=== PATIENT | female | born 1990 | race Caucasian/White ===

== ENCOUNTER 2022-08-31 00:09 | Inpatient (IN) ==
[2022-08-31] MEDS ORDERED: LIDOCAINE 1% LOCAL 20 ML VIAL INFIL PRN (00:57)
[2022-08-31] MEDS ORDERED: OXYTOCIN 30 UNITS/500 ML BAG IV PRN ×3 (00:57→12:55)
--- NOTE | 2022-08-31 01:05 | History & Physical Report ---
Date of Service August 31, 2022 Assessment & Plan (1) Supervision of normal first : Plan: primip at 39 6/7 weeks with regular contractions GBS(+)- start PCN prophylaxis epidural analgesia when requested anticipate vaginal History of Present Illness Primary Care Provider: Lien Crawford DO patient is a 31 yo female EDC 09/01/22 who presents at 39 + weeks with regular contractions that are now at least every 5 minutes and getting more painful. (-)SPROM. complicated by GDM- diet controlled. GBS (+) Allergies Allergy/AdvReac Type Severity Reaction Status Date / Time No Known Allergies Allergy Verified 08/30/22 15:36 Home Medications Medication Instructions Recorded Confirmed Type prenat.vits,jarred,mij-hwyi-yhsah 1 tab PO DAILY 01/23/22 08/31/22 History acetone (urine) test (Ketone Urine #50 ea 04/04/22 08/24/22 Rx Test strips) blood sugar diagnostic (OneTouch #150 ea 04/04/22 08/24/22 Rx Verio test strips) blood-glucose meter (OneTouch #1 ea 04/04/22 08/24/22 Rx Verio Meter) lancets 33 gauge (OneTouch Delica #150 ea 04/04/22 08/24/22 Rx Plus Lancet) Patient History Medical History BRCA negative LGSIL on Pap smear of cervix 10/23/2018 Varicella vaccination Surgical History H/O colposcopy with cervical biopsy H/O wisdom tooth extraction Family History Father BRCA gene mutation positive Prostate cancer Aunt Breast cancer Ovarian cancer Denies family history of Colorectal cancer Uterine cancer Social History Smoking Status: Never smoker Hx Alcohol Use: Yes Hx Substance Use: No Preferred Language: Wolof Communication Ability: Effective Drafter Civil (Cad) Required: No Beliefs That Will Affect Care: None marital status: marital status details: Ge Saunders (27) [phone] Current Living Situation: Spouse Current Living Situation Comment: lives with spouse, dog, cat-spouse changing litter current occupational status: employed current occupation: [employer] Home [facility] Care-[facility] Feels Safe at Home: Yes Safety Concerns: Feels Safe At This Time Assistive Devices: Glasses Review of Systems All systems reviewed & are unremarkable except as noted in HPI & below Physical Exam Constitutional: WD/WN, vitals as above Psychiatric: A+Ox3, euthymic affect Genitourinary: OB Exam Abdomen: + vertex, + estimated weight (7-8 pounds) and + regular contractions (Q3-5 minutes) Manual OB Exam: + cervical dilation 2 cm, + cervical effacement 100% and + station -2 OB Exam Monitor Tracing: + external FHT monitor used, + external uterine monitor used, + category I and + normal FHT variability Results & Data ([facility]) Vital Signs (Past 12 Hours) Vital Signs Temp Pulse BP 08/31/22 00:27 97.9 F 77 125/75 08/31/22 00:23 77 125/75 Code Status & VTE Plan VTE Prophylaxis Plan VTE Prophylaxis will be ordered: No Coding Level of Care Code None Diagnoses Supervision of normal first Z34.00
[2022-08-31] MEDS ORDERED: PENICILLIN G POTASSIUM 6 MU in DEXTROSE 5% 250 ML IV STA (01:11)
[2022-08-31] MEDS: LACTATED RINGER'S 1,000 ML IV PRN ×3 (01:15→05:34)
[2022-08-31] MEDS ORDERED: CALCIUM CARBONATE 500 MG CHEWABLE TAB PO STA (01:16)
[2022-08-31] MEDS ORDERED: ePHEDrine sulfate 50 MG/ML AMP ONE (01:30)
[2022-08-31] MEDS ORDERED: SODIUM CHLORIDE 0.9% INJ 10 ML VIAL ONE (01:31)
[2022-08-31] MEDS ORDERED: fentaNYL citrate 100 MCG/2 ML VIAL ONE (01:31)
[2022-08-31] MEDS ORDERED: BUPIVACAINE 0.25% 30 ML VIAL ONE (01:31)
[2022-08-31] MEDS ORDERED: LIDOCAINE 2%/EPINEPHRINE 1:200,000 20 ML SDV ONE (01:31)
[2022-08-31] MEDS ORDERED: fentaNYL 2MCG/ML ROPIVACAINE 1.25MG/ML 100 ML BAG EPI ONE (01:31)
[2022-08-31 01:43] LABS: Hemoglobin 13.1 g/dl (12.0-16.0); Mean Corpuscular Hemoglobin 26.5 pg (25.0-34.0); Mean Corpuscular Hgb Conc 32.8 g/dL (32.0-36.0); Mean Corpuscular Volume 80.8 fL (80.0-100.0); Mean Platelet Volume 11.2 fL (9.4-12.3); Platelet Count 153 K/uL (130-400); RDW Coefficient of Variation 14.3 % (11.5-14.5); RDW Standard Deviation 41.4 fL (36.4-46.3); Red Blood Count 4.95 M/uL (3.93-5.22); White Blood Count 11.36 K/ul (4.8-10.8)
[2022-08-31] MEDS ORDERED: NALBUPHINE HCL INJ 10 MG/ML AMP IV PRN (02:16)
[2022-08-31] MEDS ORDERED: NALOXONE HCL 0.4 MG/1 ML VIAL/CARP IV PRN (02:16)
[2022-08-31] MEDS ORDERED: fentaNYL 2MCG/ML ROPIVACAINE 1.25MG/ML 100 ML BAG EPI PRN (02:16)
[2022-08-31] MEDS ORDERED: ONDANSETRON INJ 2 MG/ML 2 ML VIAL IV PRN (02:16)
[2022-08-31] MEDS ORDERED: NALOXONE HCL 1 MG in SODIUM CHLORIDE 0.9% 1000ML 1,000 ML IV PRN (02:16)
[2022-08-31] MEDS ORDERED: diphenhydrAMINE 50 MG/ML VIAL IV PRN (02:16)
[2022-08-31] MEDS ORDERED: ePHEDrine sulfate 50 MG/ML AMP IV PRN (02:16)
--- NOTE | 2022-08-31 02:16 | Anesthesiology Consultation ---
Date of Service August 31, 2022 Assessment & Plan ASA ASA2 Proposed Anesthesia Anesthesia Type: Labor Epidural Risk / Benefits Reviewed With: PT / POA / Parent / Guardian, Accepts Plan and Informed Consent Obtained History Height/Weight Height: 5 ft 2 in Weight: 77.836 kg Allergies Allergy/AdvReac Type Severity Reaction Status Date / Time No Known Allergies Allergy Verified 08/30/22 15:36 Medications Home Medications Medication Instructions Recorded Confirmed Last Taken prenat.vits,jarred,sor-yqjp-eqhsu 1 tab PO DAILY 01/23/22 08/31/22 08/30/22 08:00 acetone (urine) test (Ketone Urine #50 ea 04/04/22 08/24/22 Unknown Test strips) blood sugar diagnostic (OneTouch #150 ea 04/04/22 08/24/22 Unknown Verio test strips) blood-glucose meter (OneTouch #1 ea 04/04/22 08/24/22 Unknown Verio Meter) lancets 33 gauge (OneTouch Delica #150 ea 04/04/22 08/24/22 Unknown Plus Lancet) Active Medications Generic Name Dose Route Start Last Admin Trade Name Freq PRN Reason Stop Dose Admin Lactated Ringer's 1,000 mls @ 125 mls/hr 08/31/22 00:57 08/31/22 02:40 Lr IV 09/02/22 00:56 125 mls/hr .Q8H PRN Administration L&D Protocol Protocol Past Medical History Medical History BRCA negative LGSIL on Pap smear of cervix 10/23/2018 Varicella vaccination Exercise / Class Metabolic Activity II 4-5 Yardwork/Stairs/Walk up hill Past Family History Family History Father BRCA gene mutation positive Prostate cancer Aunt Breast cancer Paternal Ovarian cancer Paternal Denies family history of Colorectal cancer Uterine cancer Past Surgical History Surgical History H/O colposcopy with cervical biopsy 11/2018-LGSIL H/O wisdom tooth extraction Past Anesthesia History No Hx of Anesthesia Complications and No Family Hx of Anesthesia Complications History of PONV No Hx of PONV and No Hx of Motion Sickness Social History Smoking Status: Never smoker Hx Alcohol Use: Yes Hx Substance Use: No Review of Systems denies fever/cough/ colds/ chest pain/ SOB/ NAMRATA denies NAMRATA Physical Exam Vital Signs Last Vital Signs Temp 36.6 C 08/31/22 00:27 Pulse 93 H 08/31/22 02:42 BP 109/62 08/31/22 02:42 Pulse Ox 100 08/31/22 02:42 ENMT Mouth: no TMJ abnormality and no dentition abnormality Thyromental Distance: > or= 3.5 Finger Breadths Mallampati Class: II Neck neck extension not limited Respiratory normal respiratory effort; no respiratory distress Auscultation: lungs clear to auscultation bilaterally Cardiovascular Rate/Rhythm: regular rate and regular rhythm Neurologic moves all extremities Psychiatric Orientation: alert and oriented x 3 Testing Laboratory Results 08/31/22 01:12 08/31/22 01:58 POC Glucose 119 H
[2022-08-31] MEDS: PENICILLIN G POTASSIUM 3 MU in DEXTROSE 5% 100 ML IV PRN ×2 (05:33→09:56)
--- NOTE | 2022-08-31 08:44 | Labor Progress Brief Note ---
Date of Service August 31, 2022 Subjective AROM for clear fluid at 0800 - patient comfortable with epidural analgesia now. cervix still 6-7 cm same as exam at 0700 FHT's reactive with ctns every 5 minutes Review of Systems All systems reviewed & are unremarkable except as noted in HPI & below Assessment & Plan (1) Normal labor: Admission and Anticipated Discharge Date Admission Date: August 31, 2022 Physical Exam Constitutional: WD/WN, vitals as above Psychiatric: A+Ox3, euthymic affect Results & Data ([facility]) Vital Signs (Past 12 Hours) Vital Signs Temp Pulse Resp BP Pulse Ox 08/31/22 07:08 97.9 F 16 08/31/22 00:27 97.9 F 77 125/75 08/31/22 08:40 80 92 08/31/22 08:37 81 100 08/31/22 08:32 102 H 100 08/31/22 08:31 88 103/66 08/31/22 08:28 79 106/69 08/31/22 08:27 112 H 100 08/31/22 08:22 100 H 100 08/31/22 08:21 89 101/65 08/31/22 08:18 66 108/59 L 08/31/22 08:17 71 99/70 L 100 08/31/22 08:16 113 H 93/57 L 08/31/22 08:12 73 100 08/31/22 08:10 89 91 08/31/22 08:07 120 H 100 08/31/22 08:02 101 H 100 08/31/22 08:01 112 H 99/60 L 08/31/22 08:00 107 H 93 08/31/22 07:57 78 100 08/31/22 07:52 90 100 08/31/22 07:47 108 H 110/73 100 08/31/22 07:42 83 100 08/31/22 07:37 80 100 08/31/22 07:32 81 81 L 08/31/22 07:31 80 123/73 90 08/31/22 07:27 95 H 95 08/31/22 07:22 84 100 08/31/22 07:17 88 100 08/31/22 07:16 112 H 115/74 08/31/22 07:12 71 100 08/31/22 07:07 78 100 08/31/22 07:02 90 08/31/22 07:02 99 H 08/31/22 07:02 94 H 100 08/31/22 07:01 77 121/69 08/31/22 06:57 96 H 100 08/31/22 06:53 88 94 08/31/22 06:52 76 96 08/31/22 06:47 99 H 100 08/31/22 06:46 87 132/68 08/31/22 06:42 91 H 100 08/31/22 06:41 85 90 08/31/22 06:37 76 100 08/31/22 06:30 18 08/31/22 06:30 18 08/31/22 06:32 92 H 117/71 100 08/31/22 06:27 98 H 100 08/31/22 06:22 112 H 100 08/31/22 06:17 87 100 08/31/22 06:16 87 114/67 08/31/22 06:12 105 H 100 08/31/22 06:07 99 H 100 08/31/22 06:02 101 H 100 08/31/22 06:01 91 H 118/68 08/31/22 05:57 96 H 100 08/31/22 05:53 88 91 08/31/22 05:52 95 H 100 08/31/22 05:47 81 114/67 100 08/31/22 05:43 100 H 87 L 08/31/22 05:42 96 H 100 08/31/22 05:37 88 100 08/31/22 05:32 81 100 08/31/22 05:31 81 125/67 08/31/22 05:27 96 H 100 08/31/22 05:22 82 100 08/31/22 05:20 84 92 08/31/22 05:17 77 122/69 100 08/31/22 05:14 90 92 08/31/22 05:12 90 96 08/31/22 05:07 83 100 08/31/22 05:05 81 91 08/31/22 05:02 85 100 08/31/22 05:01 82 113/66 08/31/22 04:57 79 97 08/31/22 04:54 74 121/65 08/31/22 04:52 67 100 08/31/22 04:50 66 121/81 08/31/22 04:48 58 L 114/71 08/31/22 04:47 69 97/53 L 100 08/31/22 04:42 64 100 08/31/22 04:37 91 H 96 08/31/22 04:32 74 105/59 L 100 08/31/22 04:30 18 08/31/22 04:30 18 08/31/22 04:27 66 100 08/31/22 04:22 64 98 08/31/22 04:17 62 99 08/31/22 04:16 57 L 100/58 L 08/31/22 04:12 66 99 08/31/22 04:07 76 100 08/31/22 04:03 61 106/60 08/31/22 04:02 64 100 08/31/22 04:00 18 08/31/22 04:00 18 08/31/22 03:57 63 100 08/31/22 03:54 86 89 L 08/31/22 03:52 66 100 08/31/22 03:47 62 100 08/31/22 03:46 64 104/60 08/31/22 03:42 64 100 08/31/22 03:37 82 100 08/31/22 03:30 18 08/31/22 03:30 18 08/31/22 03:32 69 98/56 L 99 08/31/22 03:31 64 100/56 L 08/31/22 03:27 69 99 08/31/22 03:22 77 100 08/31/22 03:17 67 105/56 L 99 08/31/22 03:15 18 08/31/22 03:15 18 08/31/22 03:00 18 08/31/22 03:00 18 08/31/22 03:12 69 100 08/31/22 00:30 97.9 F 08/31/22 03:05 97.7 F 08/31/22 03:00 20 08/31/22 03:00 20 08/31/22 03:07 73 100 08/31/22 02:35 18 08/31/22 02:35 18 08/31/22 03:02 80 99 08/31/22 03:01 94 H 115/55 L 08/31/22 02:57 107 H 100 08/31/22 02:55 80 111/58 L 08/31/22 02:52 94 H 100 08/31/22 02:50 93 H 20 107/59 L 08/31/22 02:47 102 H 100 08/31/22 02:45 97 H 20 115/66 08/31/22 02:44 68 108/55 L 08/31/22 02:42 93 H 109/62 100 08/31/22 02:40 106 H 20 116/72 08/31/22 02:37 74 100 08/31/22 02:38 81 109/65 08/31/22 02:36 90 113/71 08/31/22 02:33 99 H 89 L 08/31/22 02:32 66 100 08/31/22 02:27 102 H 100 08/31/22 02:22 98 H 100 08/31/22 00:23 77 125/75 Coding Level of Care Code None Diagnoses Normal labor O80; Z37.9
--- NOTE | 2022-08-31 09:14 | Communication Note ---
Date of Service: August 31, 2022 Patient aware i am taking over care. Ts categ 1. Recent arom by Dr. Feldman. Ctx pattern irregular. Will add pit may. efw 7-#. examined pt yesterday in office.
--- NOTE | 2022-08-31 11:53 | Labor Progress Brief Note ---
Date of Service August 31, 2022 Subjective comfortable but feels pressure Assessment & Plan (1) Supervision of normal first : (2) Group beta Strep positive: (3) Gestational diabetes: (4) Normal labor: Plan good cx change. begin 2nd stage. fhts categ 2. Admission and Anticipated Discharge Date Admission Date: August 31, 2022 Physical Exam Constitutional: WD/WN, vitals as above Genitourinary: Manual OB Exam: + cervical dilation 10 cm, + cervical effacement 100% and + station + 2 OB Exam Monitor Tracing: + external FHT monitor used, + external uterine monitor used (q2-3), + category II, + normal FHT variability and + variable decelerations Results & Data ([facility]) Vital Signs (Past 12 Hours) Vital Signs Temp Pulse Resp BP Pulse Ox 08/31/22 11:00 98.1 F 16 08/31/22 07:08 97.9 F 16 08/31/22 00:27 97.9 F 77 125/75 08/31/22 11:47 103 H 08/31/22 11:47 111 H 141/61 H 81 L 08/31/22 11:42 99 H 100 08/31/22 11:40 104 H 91 08/31/22 11:37 114 H 100 08/31/22 11:33 86 88 L 08/31/22 11:32 96 H 114/70 100 08/31/22 11:27 83 100 08/31/22 11:24 105 H 114/80 08/31/22 11:23 118 H 122/81 08/31/22 11:22 90 96 08/31/22 11:20 84 100/61 08/31/22 11:17 96 H 102/65 100 08/31/22 11:12 77 96 08/31/22 11:07 83 100 08/31/22 11:04 88 90 08/31/22 11:02 78 100 08/31/22 11:03 77 116/75 08/31/22 10:57 86 100 08/31/22 10:52 90 99 08/31/22 10:47 89 128/78 91 08/31/22 10:42 87 100 08/31/22 10:37 82 100 08/31/22 10:32 75 100 08/31/22 10:31 81 120/72 08/31/22 10:27 80 100 11/10/22 10:22 79 100 08/31/22 10:17 82 100 08/31/22 10:16 81 114/72 08/31/22 10:00 18 08/31/22 10:00 18 08/31/22 10:12 77 100 08/31/22 10:08 86 92 08/31/22 10:07 75 100 08/31/22 10:02 79 100 08/31/22 10:01 85 112/72 08/31/22 09:57 97 H 100 08/31/22 09:52 83 100 08/31/22 09:47 81 08/31/22 09:47 93 H 114/75 100 08/31/22 09:42 87 100 08/31/22 09:37 77 100 08/31/22 09:33 74 117/70 08/31/22 09:32 73 100 08/31/22 09:27 74 100 08/31/22 09:22 82 100 08/31/22 09:17 73 119/69 100 08/31/22 09:12 73 100 08/31/22 09:07 109 H 100 08/31/22 09:02 91 H 100 08/31/22 09:01 97.7 F 70 18 113/70 08/31/22 08:57 75 100 08/31/22 08:56 82 92 08/31/22 08:52 76 100 08/31/22 08:47 93 08/31/22 08:47 80 08/31/22 08:47 74 100 08/31/22 08:46 73 111/68 08/31/22 08:42 76 100 08/31/22 08:40 80 92 08/31/22 08:37 81 100 08/31/22 08:32 102 H 100 08/31/22 08:31 88 103/66 08/31/22 08:28 79 106/69 08/31/22 08:27 112 H 100 08/31/22 08:22 100 H 100 08/31/22 08:21 89 101/65 08/31/22 08:18 66 108/59 L 08/31/22 08:17 71 99/70 L 100 08/31/22 08:16 113 H 93/57 L 08/31/22 08:12 73 100 08/31/22 08:10 89 91 11/10/22 08:07 120 H 100 08/31/22 08:02 101 H 100 08/31/22 08:01 112 H 18 99/60 L 08/31/22 08:00 107 H 93 08/31/22 07:57 78 100 08/31/22 07:52 90 100 08/31/22 07:47 108 H 110/73 100 08/31/22 07:42 83 100 08/31/22 07:37 80 100 08/31/22 07:32 81 81 L 08/31/22 07:31 80 123/73 90 08/31/22 07:27 95 H 95 08/31/22 07:22 84 100 08/31/22 07:17 88 100 08/31/22 07:16 112 H 115/74 08/31/22 07:12 71 100 08/31/22 07:07 78 100 08/31/22 07:02 90 08/31/22 07:02 99 H 08/31/22 07:02 94 H 100 08/31/22 07:01 77 121/69 08/31/22 06:57 96 H 100 08/31/22 06:53 88 94 08/31/22 06:52 76 96 08/31/22 06:47 99 H 100 08/31/22 06:46 87 132/68 08/31/22 06:42 91 H 100 08/31/22 06:41 85 90 08/31/22 06:37 76 100 08/31/22 06:30 18 08/31/22 06:30 18 08/31/22 06:32 92 H 117/71 100 08/31/22 06:27 98 H 100 08/31/22 06:22 112 H 100 08/31/22 06:17 87 100 08/31/22 06:16 87 114/67 08/31/22 06:12 105 H 100 08/31/22 06:07 99 H 100 08/31/22 06:02 101 H 100 08/31/22 06:01 91 H 118/68 08/31/22 05:57 96 H 100 08/31/22 05:53 88 91 08/31/22 05:52 95 H 100 08/31/22 05:47 81 114/67 100 08/31/22 05:43 100 H 87 L 08/31/22 05:42 96 H 100 08/31/22 05:37 88 100 08/31/22 05:32 81 100 08/31/22 05:31 81 125/67 08/31/22 05:27 96 H 100 08/31/22 05:22 82 100 08/31/22 05:20 84 92 08/31/22 05:17 77 122/69 100 08/31/22 05:14 90 92 08/31/22 05:12 90 96 08/31/22 05:07 83 100 08/31/22 05:05 81 91 08/31/22 05:02 85 100 08/31/22 05:01 82 113/66 08/31/22 04:57 79 97 08/31/22 04:54 74 121/65 08/31/22 04:52 67 100 08/31/22 04:50 66 121/81 08/31/22 04:48 58 L 114/71 08/31/22 04:47 69 97/53 L 100 08/31/22 04:42 64 100 08/31/22 04:37 91 H 96 08/31/22 04:32 74 105/59 L 100 08/31/22 04:30 18 08/31/22 04:30 18 08/31/22 04:27 66 100 08/31/22 04:22 64 98 08/31/22 04:17 62 99 08/31/22 04:16 57 L 100/58 L 08/31/22 04:12 66 99 08/31/22 04:07 76 100 08/31/22 04:03 61 106/60 08/31/22 04:02 64 100 08/31/22 04:00 18 08/31/22 04:00 18 08/31/22 03:57 63 100 08/31/22 03:54 86 89 L 08/31/22 03:52 66 100 08/31/22 03:47 62 100 08/31/22 03:46 64 104/60 08/31/22 03:42 64 100 08/31/22 03:37 82 100 08/31/22 03:30 18 08/31/22 03:30 18 08/31/22 03:32 69 98/56 L 99 08/31/22 03:31 64 100/56 L 08/31/22 03:27 69 99 08/31/22 03:22 77 100 08/31/22 03:17 67 105/56 L 99 08/31/22 03:15 18 08/31/22 03:15 18 08/31/22 03:00 18 08/31/22 03:00 18 08/31/22 03:12 69 100 08/31/22 00:30 97.9 F 08/31/22 03:05 97.7 F 08/31/22 03:00 20 08/31/22 03:00 20 08/31/22 03:07 73 100 08/31/22 02:35 18 08/31/22 02:35 18 08/31/22 03:02 80 99 08/31/22 03:01 94 H 115/55 L 08/31/22 02:57 107 H 100 08/31/22 02:55 80 111/58 L 08/31/22 02:52 94 H 100 08/31/22 02:50 93 H 20 107/59 L 08/31/22 02:47 102 H 100 08/31/22 02:45 97 H 20 115/66 08/31/22 02:44 68 108/55 L 08/31/22 02:42 93 H 109/62 100 08/31/22 02:40 106 H 20 116/72 08/31/22 02:37 74 100 08/31/22 02:38 81 109/65 08/31/22 02:36 90 113/71 08/31/22 02:33 99 H 89 L 08/31/22 02:32 66 100 08/31/22 02:27 102 H 100 08/31/22 02:22 98 H 100 08/31/22 00:23 77 125/75 Coding Level of Care Code None Diagnoses Supervision of normal first Z34.00 Group beta Strep positive B95.1 Gestational diabetes O24.419 Normal labor O80; Z37.9
--- NOTE | 2022-08-31 12:33 | Delivery Summary ---
Vaginal Delivery Summary Date of Service August 31, 2022 Vaginal Delivery Summary and 2nd Degree LAC The patient dilated to complete and pushed to deliver a viable male infant Apgars 8 and 9 via over 2nd degree perineal laceration. Loose nuchal x 1 reduced. Mild shoulder dystocia encountered relieved with Aj maneuvers, continued maternal expulsive efforts and gentle downward traction. Mouth and nose bulb suctioned at perineum. Shoulders and body delivered with ease. Infant was vigorous and crying at . Cord clamped at 40 seconds of life and infant to maternal abdomen where the cord was then doubly clamped and cut. Placenta delivered spontaneously and intact, three-vessel cord. Hemostasis achieved with dilute pitocin and uterine massage and drainage of the bladder for approximately 250 cc under sterile conditions. Cervix and sulci intact. EBL 300 cc. Mother and baby stable in recovery. [facility] Vaginal Delivery Charge Delivery Type Details: and 2nd Degree LAC
[2022-08-31] MEDS ORDERED: bisacodyL 10 MG SUPP PR PRN (12:55)
[2022-08-31] MEDS ORDERED: OXYTOCIN 20 UNITS in LACTATED RINGER'S 1,000 ML IV SCH (12:55)
[2022-08-31] MEDS ORDERED: oxyCODONE/ACETAMINOPHEN 5mg/325mg TAB PO PRN (12:55)
[2022-08-31] MEDS ORDERED: DIPHTHERIA/TETANUS/PERTUSSIS 0.5 ML SYR/VIAL IM ONE (12:55)
[2022-08-31] MEDS ORDERED: ACETAMINOPHEN 325 MG TAB PO PRN (12:55)
[2022-08-31] MEDS: BENZOCAINE 20% AER SPR 82.5 GM CAN EXT PRN (16:12)
--- NOTE | 2022-08-31 20:37 | Anesthesia Procedure Note ---
Date of Service August 31, 2022 Anesthesia Post Epidural Note Vital Signs Vital Signs: Temp Pulse Resp BP Pulse Ox O2 Del Method 36.6 C 75 18 113/73 100 08/31/22 19:01 08/31/22 19:01 08/31/22 19:01 08/31/22 19:01 08/31/22 19:01 08/31/22 19:01 Notes Mental Status: alert / awake / arousable Nausea / Vomiting: adequately controlled Pain: adequately controlled Airway Patency, RR, SpO2: stable & adequate BP & HR: stable & adequate Hydration State: stable & adequate Neuraxial Anesthesia: was administered and sensory block is resolving Anesthetic Complications: no major complications apparent and Pt Satisfied with anesthetic care Epidural: Removed without complications and With tip intact
[2022-08-31] MEDS: DOCUSATE SODIUM 100 MG CAP PO SCH (21:29)
[2022-08-31] MEDS: IBUPROFEN 600 MG TAB PO PRN (21:29)
[2022-08-31] MEDS: HYDROCORTISONE ACETATE 25 MG SUPP PR PRN (23:25)
[2022-09-01] MEDS ORDERED: HYDROCORTISONE 2.5% CR 30 GM TUBE EXT PRN (07:13)
--- NOTE | 2022-09-01 07:13 | Obstetrical Progress Note ---
Date of Service September 01, 2022 Assessment & Plan (1) Normal labor: routine care. rh pos, ri, breast feeding. rash between breasts, looks like she is bruised maybe due to itching area in labor. will order steroid cream. monitor Subjective Ambulation: ambulating normally Voiding: no voiding problems Diet Tolerance:: regular diet Lochia:: Small Feeding Type:: breast feeding noting rash between breasts itchy, does feel that she could have been scratching this area in labor Constitutional: + as per Subjective / HPI Physical Exam Constitutional WD/WN, vitals as above Respiratory normal respiratory effort, lungs clear to auscultation Cardiovascular Rate/Rhythm: regular rate and regular rhythm Gastrointestinal (Abdomen) Inspection/Auscultation: abdomen normal to inspection Percussion/Palpation: abdomen soft Fundus firm 2cm down. nt Musculoskeletal nt calves no edema Skin area between breast irregular erythema ? bruising. no papules, no crusts. Neurologic grossly normal Psychiatric A+Ox3, euthymic affect Results & Data ([facility]) Vital Signs (Past 12 Hours) Vital Signs Temp Pulse Resp BP BP Pulse Ox O2 Del Method 09/01/22 03:00 97.9 F 83 16 91/56 L 98 Room Air 08/31/22 23:00 98.4 F 120 H 18 119/74 98 Room Air 08/31/22 22:50 98.6 F 94 H 18 108/70 97 Room Air
[2022-09-01] MEDS: IBUPROFEN 600 MG TAB PO PRN ×3 (07:38→21:43)
[2022-09-01] MEDS: DOCUSATE SODIUM 100 MG CAP PO SCH ×2 (07:38→21:43)
[2022-09-01] MEDS: PRENATAL VITAMIN 1 TAB PO SCH (07:38)
[2022-09-01] MEDS: HYDROCORTISONE ACETATE 25 MG SUPP PR PRN (17:40)
[2022-09-02] MEDS: IBUPROFEN 600 MG TAB PO PRN ×2 (06:18→11:42)
--- NOTE | 2022-09-02 06:24 | Obstetrical Progress Note ---
Date of Service September 02, 2022 Assessment & Plan (1) Normal labor: (2) Gestational diabetes: (3) Group beta Strep positive: Plan s/p PPD#2: Vital signs reviewed and WNL, Tmax at 37 Hemoglobin 13.1 (09/01), 11.4 (09/02) O+, GBS positive, Rubella immune Continue regular diet, treat pain as needed Encourage ambulation Ordered Venous doppler for left calf pain- discussed d/c will be pending US result Admission and Anticipated Discharge Date Admission Date: August 31, 2022 Supervising Physician Co-Signing Physician Notes Resident Physician Supervision Note: I was present with Dr. Edwards during the history and exam. I discussed the case with the resident and agree with the findings and plan as documented in the note. Any exceptions or clarifications are listed here: PPD#2 doing well. Left calf pain, will obtain dopper to r/o clot. If wnl, ok to DC home - instructions reviewed. Documented By: Alesha Tao, DO Keo Marisol is a 31 y/o female who is PPD #2 following delivery at 39 6/7 weeks. Her was complicated by gestational diabetes and GBS positive status (received penicillin). She reports feeling well overall this morning. Some abdominal cramping & vaginal soreness but pain well managed on analgesics. Voiding without issue. Tolerating meals overnight and able to ambulate some. Endorses passing gas. Has some persistent lochia with some improvement this morning. Currently breast feeding. Still notes a small red spot between her breasts- has used cortisone cream and covered it with a bandage, seems to be less itchy today. Notes that her left calf is a bit sore with flexion this morning. Review of Systems Constitutional: no fever, no chills and no sweats Respiratory: no cough, no dyspnea and no wheezing Cardiovascular: no chest pain and no palpitations Genitourinary: no dysuria Neurologic: no headache(s) Physical Exam Constitutional: WD/WN, vitals as above no acute distress Respiratory: no respiratory distress Auscultation: lungs clear to auscultation bilaterally; no rales, no rhonchi and no wheezes Cardiovascular: RRR, no murmur, no edema Extremities: + calf tenderness (mild calf tenderness with palpation and flexion of left calf); no edema Genitourinary: Uterine fundus firm, palpable below the umbilicus. Results & Data ([facility]) Vital Signs (Past 12 Hours) Vital Signs Temp Pulse Resp BP BP Pulse Ox O2 Del Method 09/02/22 03:00 36.8 C 82 16 117/82 97 Room Air 09/01/22 23:30 37.0 C 82 16 110/68 99 Room Air 09/01/22 19:15 36.9 C 80 16 107/65 99 Room Air Resident Activity Tracking Resident Involvement: Resident Care Provided Care Provided: OB Delivery
[2022-09-02 07:05] LABS: Hematocrit (blood only) 35.4 % (34.1-44.9); Hemoglobin 11.4 g/dl (12.0-16.0)
[2022-09-02] MEDS: PRENATAL VITAMIN 1 TAB PO SCH (08:20)
[2022-09-02] MEDS: DOCUSATE SODIUM 100 MG CAP PO SCH (08:20)
--- NOTE | 2022-09-02 09:08 | Ultrasound Report ---
LEFT LOWER EXTREMITY VENOUS DOPPLER HISTORY: Left calf pain COMPARISON STUDY: None. FINDINGS: There is normal compressibility, flow, and augmentation within the left lower extremity neena p venous system. IMPRESSION: No DVT within the left lower extremity. ACT 112: Negative or not required by law. Electronically signed by: Eugene Cedeno M.D. 09/02/2022 9:07 AM
[2022-09-02] MEDS: BENZOCAINE 20% AER SPR 82.5 GM CAN EXT PRN (09:41)
--- NOTE | 2022-09-02 10:20 | Communication Note ---
Date of Service: September 02, 2022 Doppler of the left lower extremity is negative and is ok for discharge.
== END 2022-09-02 12:13 | disposition home or self-care (01) | DRG 807 ==
LOC: OPB 00:09 → 4S1 00:13 → 4E2 15:36

== ENCOUNTER 2023-03-06 21:17 | Observation (INO) ==
--- NOTE | 2023-03-06 21:46 | Emergency Department Note ---
History of Present Illness General Chief complaint: Neuro Symptoms/Deficit Stated complaint: WEAKNESS AND NUMBNESS HUSAM LEGS,DIZZY, Time Seen by Provider: 03/06/23 21:28 History of Present Illness This 32-year-old female who is in OT is 6 months presents to the ER complaining of feeling lightheaded and bilateral leg weakness and heaviness for the past week. Patient seen here few days ago and had a negative CT and MRI of the brain. Patient saw the PCP today and had outpatient labs ordered and has appointment next week with neurology. She comes in now as she is having difficulty walking and her legs feel heavy and she feels like her gait is off. Patient denies chest pain, dyspnea, headache, neck stiffness, localized weakness, cough, congestion. She had a recent illness a few weeks ago. Nothing since. 6-month-old is fine. She states she is healthy with no active medical problems. She takes a . She had ticks on her last year but nothing recent. Home Medications Medication Instructions Recorded Confirmed Type prenat.vits,jarred,lqe-[id number] 1 tab PO DAILY 01/23/22 03/06/23 History Allergies Allergy/AdvReac Type Severity Reaction Status Date / Time No Known Allergies Allergy Verified 03/01/23 19:05 Past Med/Surg History Medical History BRCA negative LGSIL on Pap smear of cervix 10/23/2018 Varicella vaccination Surgical History H/O colposcopy with cervical biopsy 11/2018-LGSIL H/O wisdom tooth extraction Family History Father BRCA gene mutation positive Prostate cancer Aunt Breast cancer Paternal Ovarian cancer Paternal Denies family history of Colorectal cancer Uterine cancer Social History Smoking Status: Never smoker Do You Dip or Chew Tobacco: No; Hx Alcohol Use: Yes Hx Substance Use: No Preferred Language: Belarusian Communication Ability: Effective Clinical Dietician Required: No Beliefs That Will Affect Care: None marital status: marital status details: Ge Smithwery [phone] Current Living Situation: Spouse Current Living Situation Comment: lives with spouse, dog, cat-spouse changing l itter current occupational status: employed current occupation: [employer] Feels Safe at Home: Yes Assistive Devices: Glasses Review of Systems A total of 10 systems reviewed and were otherwise negative Physical Exam Vital Signs Vital Signs - 24 hr 03/06/23 21:19 03/06/23 22:11 03/06/23 22:11 Temperature 36.5 C Temperature Source Temporal Artery Scan Pulse Rate - Lying Pulse Rate - Sitting Pulse Rate - Standing Pulse Rate 92 H 89 Pulse Rate [Apical] Respiratory Rate 20 Respiratory Effort / Characteristics Non-Labored Spontaneous Respiratory Depth Normal Blood Pressure - Lying Blood Pressure - Sitting Blood Pressure- Standing Blood Pressure 128/87 Blood Pressure [Right Arm] Blood Pressure Mean 100 Blood Pressure Mean [Right Arm] Pulse Oximetry 100 100 Oxygen Delivery Method Room Air Room Air Sepsis New/Unexplained Change in Mental Status N/A Sepsis Action Taken by Nursing No Action Required 03/06/23 22:15 03/06/23 22:59 Temperature Temperature Source Pulse Rate - Lying 82 Pulse Rate - Sitting 83 Pulse Rate - Standing 86 Pulse Rate Pulse Rate [Apical] 89 Respiratory Rate 16 Respiratory Effort / Characteristics Respiratory Depth Blood Pressure - Lying 123/80 Blood Pressure - Sitting 120/83 Blood Pressure- Standing 120/80 Blood Pressure Blood Pressure [Right Arm] 120/80 Blood Pressure Mean Blood Pressure Mean [Right Arm] 93 Pulse Oximetry 100 Oxygen Delivery Method Room Air Sepsis New/Unexplained Change in Mental Status Sepsis Action Taken by Nursing VITALS: Vitals are noted on the nurse's note and reviewed by myself. Vital signs stable. GENERAL: Pleasant female, in no acute distress, nondiaphoretic, well-developed well-nourished. SKIN: The skin was without rashes, erythema, edema, or bruising. There is no tenting of the skin. Capillary reflex less than 2 seconds. HEAD: Normocephalic atraumatic. EARS: External auditory canals clear, tympanic membranes pearly abdi without erythema or effusion bilaterally. EYES: Pupils equal round and reactive to light and accommodation. Conjunctivae without injection, sclerae without icterus. Extraocular movements intact. NOSE: Patent, turbinates without inflammation or discharge. MOUTH: Mucous membranes moist. Pharynx without erythema or exudate. Uvula midline. Airway patent. Tongue does not deviate. NECK: Supple without nuchal rigidity. No lymphadenopathy. No thyromegaly. Cervical spine is nontender. No JVD. HEART: Regular rate and rhythm without murmurs gallops or rubs. LUNGS: Clear to auscultation bilaterally without wheezes, rales or rhonchi. No retractions or accessory muscle use. ABDOMEN: Positive bowel sounds x 4. Normal tympanic percussion. Soft, nontender, without masses or organomegaly. Quarles sign negative. No guarding or rebound tenderness. No CVA tenderness MUSCULOSKELETAL: No muscle atrophy, erythema, or edema noted. +2 reflexes upper and lower extremities. NEURO: Patient was alert and oriented to person place and time. Normal sensation to light and sharp touch. No focal neurological deficits. Cranial nerves II through XII grossly intact. No pronator drift. Cerebellar exam intact. 5 out of 5 strength throughout. Medical Decision Making Medical Records Attestation: I reviewed the patient's medical records. Home Medications Current Medication List: was personally reviewed by me Laboratory Data Attestation: I reviewed the patient's lab results. 03/06/23 21:46 03/06/23 21:46 Lab Results 03/06/23 03/06/23 03/06/23 Range/Units 21:46 21:46 21:46 WBC 5.11 (4.8-10.8) K/ul RBC 4.98 (4.20-5.40) M/uL Hgb 13.7 (12.0-16.0) g/dl Hct 40.4 (37.0-47.0) % MCV 81.1 (80.0-100.0) fL MCH 27.5 (25.0-34.0) pg MCHC 33.9 (32.0-36.0) g/dL RDW Std Deviation 40.2 (36.4-46.3) fL RDW Coeff of Minoo 13.8 (11.5-14.5) % Plt Count 217 (130-400) K/uL MPV 10.3 (9.4-12.4) fL Immature Gran % (Auto) 0.2 % Neut % (Auto) 57.5 % Lymph % (Auto) 35.2 % [place] % (Auto) 4.9 % Eos % (Auto) 1.2 % Baso % (Auto) 1.0 % Neut # (Auto) 2.94 (1.40-6.50) K/uL Lymph # (Auto) 1.80 (1.2-3.4) K/uL [place] # (Auto) 0.25 (0.11-0.59) K/uL Eos # (Auto) 0.06 (0-0.50) K/uL Baso # (Auto) 0.05 (0-0.2) K/uL Immature Gran # (Auto) 0.01 (0.01-0.20) K/uL ESR 2 (0-20) mm/hr Sodium 141 (136-145) mmol/L Potassium 3.7 (3.5-5.1) mmol/L Chloride 107 (98-107) mmol/L Carbon Dioxide 28 (21-32) mmol/L Anion Gap 6 (3-11) BUN 12 (6-23) mg/dl Creatinine 0.73 (0.6-1.2) mg/dl Est Cr Clr Drug Dosing 88.3 ml/min Est GFR ( Amer) 127.2 ml/min Est GFR (Non-Af Amer) 109.7 ml/min BUN/Creatinine Ratio 16.4 (10-20) Glucose 89 (70-99(Fasting)) mg/dl Calcium 8.9 (8.6-10.3) mg/dl Magnesium 2.0 (1.7-2.4) mg/dl Total Bilirubin 0.4 (0.2-1.0) mg/dl AST 23 (13-39) U/L ALT 20 (7-52) U/L Alkaline Phosphatase 79 (34-104) U/L Lactate Dehydrogenase (86-244) U/L Total Creatine Kinase 67 (26-192) U/L C-Reactive Protein < 0.50 (0-0.5) mg/dl Total Protein 7.4 (6.0-8.3) gm/dl Albumin 4.6 (3.4-5.0) gm/dl Globulin 2.8 (2.5-4.0) gm/dl Albumin/Globulin Ratio 1.6 (0.9-2) Vitamin B12 (180-914) pg/ml TSH (0.300-4.500) uIu/ml Free T4 (0.61-1.60) ng/dl HCG, Qual (Negative) Adenovirus (PCR) (NotDetected) Anaplasma Smear See Comment Babesia Smear See Comment B. pertussis DNA (PCR) (NotDetected) B.parapertussis DNA PCR (NotDetected) Lyme Disease IgG Ab (Negative) Lyme Disease IgM Ab (Negative) C. pneumoniae DNA (PCR) (NotDetected) Coronavirus OC43 (PCR) (NotDetected) Coronavirus HKU1 (PCR) (NotDetected) Coronavirus 229E (PCR) (NotDetected) SARS-CoV-2 (PCR) (NotDetected) Coronavirus NL63 (PCR) (NotDetected) Monoscreen (Negative) Human Metapneumovir PCR (NotDetected) Influenza Type A (PCR) (NotDetected) Influenza Type B (PCR) (NotDetected) M. pneumoniae (PCR) (NotDetected) Parainfluenza 1 (PCR) (NotDetected) Parainfluenza 2 (PCR) (NotDetected) Parainfluenza 3 (PCR) (NotDetected) Parainfluenza 4 (PCR) (NotDetected) RSV (PCR) (NotDetected) Entero/Rhino (PCR) (NotDetected) 03/06/23 03/06/23 03/06/23 Range/Units 21:46 21:46 21:46 WBC (4.8-10.8) K/ul RBC (4.20-5.40) M/uL Hgb (12.0-16.0) g/dl Hct (37.0-47.0) % MCV (80.0-100.0) fL MCH (25.0-34.0) pg MCHC (32.0-36.0) g/dL RDW Std Deviation (36.4-46.3) fL RDW Coeff of Minoo (11.5-14.5) % Plt Count (130-400) K/uL MPV (9.4-12.4) fL Immature Gran % (Auto) % Neut % (Auto) % Lymph % (Auto) % [place] % (Auto) % Eos % (Auto) % Baso % (Auto) % Neut # (Auto) (1.40-6.50) K/uL Lymph # (Auto) (1.2-3.4) K/uL [place] # (Auto) (0.11-0.59) K/uL Eos # (Auto) (0-0.50) K/uL Baso # (Auto) (0-0.2) K/uL Immature Gran # (Auto) (0.01-0.20) K/uL ESR (0-20) mm/hr Sodium (136-145) mmol/L Potassium (3.5-5.1) mmol/L Chloride (98-107) mmol/L Carbon Dioxide (21-32) mmol/L Anion Gap (3-11) BUN (6-23) mg/dl Creatinine (0.6-1.2) mg/dl Est Cr Clr Drug Dosing ml/min Est GFR ( Amer) ml/min Est GFR (Non-Af Amer) ml/min BUN/Creatinine Ratio (10-20) Glucose (70-99(Fasting)) mg/dl Calcium (8.6-10.3) mg/dl Magnesium (1.7-2.4) mg/dl Total Bilirubin (0.2-1.0) mg/dl AST (13-39) U/L ALT (7-52) U/L Alkaline Phosphatase (34-104) U/L Lactate Dehydrogenase 164 (86-244) U/L Total Creatine Kinase (26-192) U/L C-Reactive Protein (0-0.5) mg/dl Total Protein (6.0-8.3) gm/dl Albumin (3.4-5.0) gm/dl Globulin (2.5-4.0) gm/dl Albumin/Globulin Ratio (0.9-2) Vitamin B12 (180-914) pg/ml TSH 4.545 H (0.300-4.500) uIu/ml Free T4 0.76 (0.61-1.60) ng/dl HCG, Qual Negative (Negative) Adenovirus (PCR) (NotDetected) Anaplasma Smear Babesia Smear B. pertussis DNA (PCR) (NotDetected) B.parapertussis DNA PCR (NotDetected) Lyme Disease IgG Ab Negative (Negative) Lyme Disease IgM Ab Negative (Negative) C. pneumoniae DNA (PCR) (NotDetected) Coronavirus OC43 (PCR) (NotDetected) Coronavirus HKU1 (PCR) (NotDetected) Coronavirus 229E (PCR) (NotDetected) SARS-CoV-2 (PCR) (NotDetected) Coronavirus NL63 (PCR) (NotDetected) Monoscreen Negative (Negative) Human Metapneumovir PCR (NotDetected) Influenza Type A (PCR) (NotDetected) Influenza Type B (PCR) (NotDetected) M. pneumoniae (PCR) (NotDetected) Parainfluenza 1 (PCR) (NotDetected) Parainfluenza 2 (PCR) (NotDetected) Parainfluenza 3 (PCR) (NotDetected) Parainfluenza 4 (PCR) (NotDetected) RSV (PCR) (NotDetected) Entero/Rhino (PCR) (NotDetected) 03/06/23 03/06/23 Range/Units 21:46 22:08 WBC (4.8-10.8) K/ul RBC (4.20-5.40) M/uL Hgb (12.0-16.0) g/dl Hct (37.0-47.0) % MCV (80.0-100.0) fL MCH (25.0-34.0) pg MCHC (32.0-36.0) g/dL RDW Std Deviation (36.4-46.3) fL RDW Coeff of Minoo (11.5-14.5) % Plt Count (130-400) K/uL MPV (9.4-12.4) fL Immature Gran % (Auto) % Neut % (Auto) % Lymph % (Auto) % [place] % (Auto) % Eos % (Auto) % Baso % (Auto) % Neut # (Auto) (1.40-6.50) K/uL Lymph # (Auto) (1.2-3.4) K/uL [place] # (Auto) (0.11-0.59) K/uL Eos # (Auto) (0-0.50) K/uL Baso # (Auto) (0-0.2) K/uL Immature Gran # (Auto) (0.01-0.20) K/uL ESR (0-20) mm/hr Sodium (136-145) mmol/L Potassium (3.5-5.1) mmol/L Chloride (98-107) mmol/L Carbon Dioxide (21-32) mmol/L Anion Gap (3-11) BUN (6-23) mg/dl Creatinine (0.6-1.2) mg/dl Est Cr Clr Drug Dosing ml/min Est GFR ( Amer) ml/min Est GFR (Non-Af Amer) ml/min BUN/Creatinine Ratio (10-20) Glucose (70-99(Fasting)) mg/dl Calcium (8.6-10.3) mg/dl Magnesium (1.7-2.4) mg/dl Total Bilirubin (0.2-1.0) mg/dl AST (13-39) U/L ALT (7-52) U/L Alkaline Phosphatase (34-104) U/L Lactate Dehydrogenase (86-244) U/L Total Creatine Kinase (26-192) U/L C-Reactive Protein (0-0.5) mg/dl Total Protein (6.0-8.3) gm/dl Albumin (3.4-5.0) gm/dl Globulin (2.5-4.0) gm/dl Albumin/Globulin Ratio (0.9-2) Vitamin B12 358 (180-914) pg/ml TSH (0.300-4.500) uIu/ml Free T4 (0.61-1.60) ng/dl HCG, Qual (Negative) Adenovirus (PCR) Not Detected (NotDetected) Anaplasma Smear Babesia Smear B. pertussis DNA (PCR) Not Detected (NotDetected) B.parapertussis DNA PCR Not Detected (NotDetected) Lyme Disease IgG Ab (Negative) Lyme Disease IgM Ab (Negative) C. pneumoniae DNA (PCR) Not Detected (NotDetected) Coronavirus OC43 (PCR) Not Detected (NotDetected) Coronavirus HKU1 (PCR) Not Detected (NotDetected) Coronavirus 229E (PCR) Not Detected (NotDetected) SARS-CoV-2 (PCR) Not Detected (NotDetected) Coronavirus NL63 (PCR) Not Detected (NotDetected) Monoscreen (Negative) Human Metapneumovir PCR Not Detected (NotDetected) Influenza Type A (PCR) Not Detected (NotDetected) Influenza Type B (PCR) Not Detected (NotDetected) M. pneumoniae (PCR) Not Detected (NotDetected) Parainfluenza 1 (PCR) Not Detected (NotDetected) Parainfluenza 2 (PCR) Not Detected (NotDetected) Parainfluenza 3 (PCR) Not Detected (NotDetected) Parainfluenza 4 (PCR) Not Detected (NotDetected) RSV (PCR) Not Detected (NotDetected) Entero/Rhino (PCR) Not Detected (NotDetected) Imaging Data Attestation: I personally reviewed and interpreted this imaging study as phoebe poole: Radiologist's Impression: Chest X-Ray 03/06/23 21:40 SINGLE VIEW CHEST CLINICAL HISTORY: Generalized weakness. FINDINGS: An AP, portable, upright chest radiograph is compared to study dated 03/01/2023. The cardiomediastinal silhouette is unremarkable. The lungs and pleural spaces are clear. No pneumothorax is seen. The bony thorax is grossly intact. IMPRESSION: No active disease in the chest. ACT 112: Negative or not required by law. Electronically signed by: Manohar Sandoval M.D. 03/06/2023 10:46 PM [facility] Narrative Prior records/ancillary studies reviewed and summarized above. Nursing notes reviewed. Additional history obtained from family. The patient's history was concerning for bilateral leg weakness feeling off balance and lightheaded. Differential diagnosis: Etiologies such as metabolic, infection, hypo/hyperglycemia, electrolyte abnormalities, cardiac sources, intracerebral event, toxicologic, neurologic, as well as others were entertained. Physical examination: As above. ER treatment provided: IV Lock An order was placed for continuous cardiac monitoring. The monitor shows a rate of 60-100 with a sinus rhythm per my interpretation. P.o. fluids On reassessment the patient felt better. Diagnostics interpretation by me: ECG: Ordered for weakness EKG: Normal sinus, normal intervals, no acute ST-T wave changes. Impression normal sinus rhythm interpreted by myself I think arrhythmia is unlikely. EKG shows normal sinus rhythm with no interval abnormalities such as QT prolongation or WPW. There are no findings to suggest Brugada syndrome. Cardiac monitoring in the emergency department reveals no tachycardic or bradycardic dysrhythmia. Hypertrophic cardiomyopathy was considered but there are no clear historical elements pointing toward this. EKG is not suggestive. The QRS voltage is not extremely large and there are no suggestive Q waves. The labs Independently Interpreted by myself revealed no worrisome leukocytosis, negative BioFire, negative Lyme's, Negative hCG Normal CPK Imaging studies: Chest x-ray with no acute consolidation, pneumothorax or free air per my independent interpretation Consultation: A consultation was placed with the hospitalist. The case was discussed and diagnostics were reviewed. The patient was evaluated in the ER for further treatment. Exam and history seem consistent with worsening lightheadedness leg weakness and heaviness for the past week. Patient had a recent illness. No signs of Guillain-Davis on exam. No ascending paralysis. Reflexes are normal. Symptoms have been getting worse. She had an MRI and CTA the other day in the ER which were normal. Medicine is consulted and the case discussed. She was admitted to the medical service for further evaluation and work-up. By the evaluation outlined above emergent etiologies such as electrolyte abnormalities, cardiac sources, intracerebral event, toxologic, abnormalities blood glucose, metabolic, as well as others were deemed relatively unlikely. The pt informed about the findings as listed above. All questions were answered and pleased with the treatment. The chart was completed utilizing [employer] Speech voice recognition software. Grammatical errors, random word insertions, pronoun errors, and incomplete sentences are an occassional consequence of this system due to software limitations, ambient noise, and hardware issues. Any formal questions or nish rns about the content, text, or information contained within the body of this dictation should be directly addressed to the physician escrow assistant for clarification. Impression & Plan Weakness, Difficulty in walking, Intermittent lightheadedness Discharge Plan Visit Data Chief Complaint: Neuro Symptoms/Deficit Stated Complaint: WEAKNESS AND NUMBNESS HUSAM LEGS,DIZZY, ED Provider: Crystal Yeager ED Midlevel Provider: Samantha Coronel Discharge Problem: Weakness, Difficulty in walking, Intermittent lightheadedness Patient Disposition: Being Evaluated by Hospitalist Condition: Good Forms Stand Alone Forms: My [employer] Prescriptions Prescriptions: No Action prenat.vits,jarred,[id number]-hybr-pijut Tablet 1 tab PO DAILY Referrals Referrals: Lien Crawford DO [Primary Care Provider] -
[2023-03-06 22:17] LABS: Basophils # (auto) 0.05 K/uL (0-0.2); Eosinophils # (auto) 0.06 K/uL (0-0.50); Eosinophils % (auto) 1.2 %; Hematocrit (blood only) 40.4 % (37.0-47.0); Hemoglobin 13.7 g/dl (12.0-16.0); Immature Granulocytes # (auto) 0.01 K/uL (0.01-0.20); Immature Granulocytes % (auto) 0.2 %; Lymphocytes % (auto) 35.2 %; Mean Corpuscular Hemoglobin 27.5 pg (25.0-34.0); Mean Corpuscular Hgb Conc 33.9 g/dL (32.0-36.0); Mean Corpuscular Volume 81.1 fL (80.0-100.0); Mean Platelet Volume 10.3 fL (9.4-12.4); Monocytes # (auto) 0.25 K/uL (0.11-0.59); Monocytes % (auto) 4.9 %; Neutrophils # (auto) 2.94 K/uL (1.40-6.50); Neutrophils % (auto) 57.5 %; Platelet Count 217 K/uL (130-400); RDW Coefficient of Variation 13.8 % (11.5-14.5); RDW Standard Deviation 40.2 fL (36.4-46.3); Red Blood Count 4.98 M/uL (4.20-5.40); White Blood Count 5.11 K/ul (4.8-10.8)
[2023-03-06 22:27] LABS: Pregnancy Test, Serum Negative (Negative)
[2023-03-06 22:28] LABS: Alanine Aminotransferase 20 U/L (7-52); Albumin Globulin Ratio 1.6 (0.9-2); Albumin Level 4.6 gm/dl (3.4-5.0); Alkaline Phosphatase 79 U/L (34-104); Anion Gap 6 (3-11); Aspartate Aminotransferase 23 U/L (13-39); BUN Creatinine Ratio 16.4 (10-20); Bilirubin,Total 0.4 mg/dl (0.2-1.0); Blood Urea Nitrogen 12 mg/dl (6-23); C Reactive Protein < 0.50 mg/dl (0-0.5); Calcium 8.9 mg/dl (8.6-10.3); Carbon Dioxide 28 mmol/L (21-32); Chloride 107 mmol/L (98-107); Creatine Kinase 67 U/L (26-192); Creatinine Clr Calc Pharmacy 88.3 ml/min; Est GFR (African American) 127.2 ml/min; Est GFR (Non-African American) 109.7 ml/min; Globulin 2.8 gm/dl (2.5-4.0); Glucose 89 mg/dl (70-99(Fasting)); Potassium 3.7 mmol/L (3.5-5.1); Sodium 141 mmol/L (136-145); Total Protein 7.4 gm/dl (6.0-8.3)
[2023-03-06 22:31] LABS: Monotest Negative (Negative)
[2023-03-06 22:43] LABS: Thyroid Stimulating Hormone 4.545 uIu/ml (0.300-4.500)
--- NOTE | 2023-03-06 22:48 | XRay Report ---
SINGLE VIEW CHEST CLINICAL HISTORY: Generalized weakness. FINDINGS: An AP, portable, upright chest radiograph is compared to study dated 03/01/2023. The cardiom ediastinal silhouette is unremarkable. The lungs and pleural spaces are clear. No pneumothorax is see n. The bony thorax is grossly intact. IMPRESSION: No active disease in the chest. ACT 112: Negative or not required by law. Electronically signed by: Manohar Sandoval M.D. 03/06/2023 10:46 PM
[2023-03-06 22:54] LABS: Lyme Ab IgG w/WB Rflx Negative (Negative); Lyme Ab IgM w/WB Rflx Negative (Negative)
[2023-03-06 23:18] LABS: T4 Free Thyroxine 0.76 ng/dl (0.61-1.60)
[2023-03-06 23:19] LABS: Adenovirus PCR Not Detected (NotDetected); Bordetella parapertussis PCR Not Detected (NotDetected); Bordetella pertussis PCR Not Detected (NotDetected); Chlamydia pneumoniae PCR Not Detected (NotDetected); Coronavirus 229E PCR Not Detected (NotDetected); Coronavirus CoV-2 (COVID19)PCR Not Detected (NotDetected); Coronavirus HKU1 PCR Not Detected (NotDetected); Coronavirus NL63 PCR Not Detected (NotDetected); Coronavirus OC43PCR Not Detected (NotDetected); Human Metapneumovirus PCR Not Detected (NotDetected); Influenza A PCR Not Detected (NotDetected); Influenza B PCR Not Detected (NotDetected); Mycoplasma pneumoniae PCR Not Detected (NotDetected); Parainfluenza Virus 1 PCR Not Detected (NotDetected); Parainfluenza Virus 2 PCR Not Detected (NotDetected); Parainfluenza Virus 3 PCR Not Detected (NotDetected); Parainfluenza Virus 4 PCR Not Detected (NotDetected); Respiratory Syncytial VirusPCR Not Detected (NotDetected); Rhinovirus/Enterovirus PCR Not Detected (NotDetected)
[2023-03-07] MEDS ORDERED: ACETAMINOPHEN 325 MG TAB PO PRN (02:03)
[2023-03-07] MEDS ORDERED: SODIUM CHLORIDE 0.9% 1000ML 1,000 ML IV SCH (02:03)
[2023-03-07] MEDS ORDERED: NITROGLYCERIN SL 0.4 MG/TAB TAB SL PRN (02:03)
[2023-03-07] MEDS ORDERED: POLYETHYLENE (MIRALAX) 17 GM PACK PO PRN (02:03)
--- NOTE | 2023-03-07 06:22 | History and Physical Report ---
DATE OF ADMISSION: 03/07/2023. CHIEF COMPLAINT: Dizziness and left leg weakness. HISTORY OF PRESENT ILLNESS: A 32-year-old female with no significant past medical history 6 months , presents with episode of dizziness and left leg weakness around 4 p.m. today. She was in the ER on 03/01/2023 with weird kind of feeling in the left side of the body, more in the left upper extremity, some off balance at that time. She had CTA of the head and neck and MRI scan of the brain, which were unremarkable. She was advised to follow as outpatient. The patient says at 4 p.m., she suddenly felt dizzy, blurred visions and when tried to walk, she has been dragging her left leg and also felt some hot kind of sensation in the abdomen, which prompted her to come to the ER. Currently, resting comfortably and stable. Her symptoms much improved, but still feels some weak feeling in the left leg. Her dizziness improved. No blurred visions, no earache, no runny nose, no sore throat, no fever. No difficulty swallowing. No chest pain, no shortness of breath. No nausea, no abdominal pain. Normal bowel and bladder movements. ALLERGIES: No known drug allergies. PAST MEDICAL HISTORY: None. PAST SURGICAL HISTORY: None. MEDICATIONS: vitamins. FAMILY HISTORY: Mother side has heart disease. Father side has cervical cancer, prostate cancer and breast cancer. SOCIAL HISTORY: Denies any smoking. No alcohol use. REVIEW OF SYSTEMS: As per HPI. Rest of review of systems is negative. PHYSICAL EXAMINATION: GENERAL: The patient is of moderate build, not in acute distress. VITAL SIGNS: Temperature 36.5, pulse 62, respiratory rate 18, blood pressure 122/62, oxygen 100% on room air. HEENT: Pupils equal, round and reactive to light. Oral mucosa moist. NECK: No JVD, no neck masses. CARDIOVASCULAR: S1 and S2 heard. Regular rate and rhythm. No murmur, no gallop. RESPIRATORY SYSTEM: Normal AP diameter. No accessory muscle use. No wheezing, no crackles. ABDOMEN: Soft, bowel sounds present, nontender, no distention. CENTRAL NERVOUS SYSTEM: Alert and oriented. Speech is clear. No facial droop. Power 4/5 in left lower extremity and 5/5 in other extremities. Sensation is intact. Coordination of movements normal. No pronator drift. Position sense intact. EXTREMITIES: No edema, no erythema. LABORATORY DATA: WBC 5.1, hemoglobin 13.7, hematocrit 40.4, platelets 217. ESR 2. Sodium 141, potassium 3.7, chloride 107, CO2 of 28, BUN 12, creatinine 0.7, serum glucose 89, calcium 8.9, magnesium 2, total bilirubin 0.4, AST 23, ALT 20, alkaline phosphatase 79. LDH is 164, total creatine kinase 67. C-reactive protein less than 0.5, vitamin B12 358. TSH 4.5, free T4 of 0.7. HCG qualitative negative. T. pallidum antibody pending. Anaplasmosis smear negative. Babesia smear negative. Lyme screen negative. EBV studies pending. Monoscreen negative. IMAGING DATA: Chest x-ray, no active disease in the chest. EKG: Normal sinus rhythm with sinus arrhythmia at a rate of 77, no acute ST changes seen. ASSESSMENT AND PLAN: This is a 32-year-old female who presents with left leg weakness. 1. Left leg weakness. The patient has similar kind of episode with weird feeling on 03/01/2023 workup was negative. At that time advised to follow as an outpatient with the Neurology. Comes here because of feeling of dizzy and left leg weakness, dizziness improved, left leg weakness much improved. Resting comfortably, hemodynamically stable. Will admit to [facility] We will neuro checks q. 4 hours. Consult neurology in the a.m. for further evaluation and recommendations. 2. Deep venous thrombosis prophylaxis: SCD. DISPOSITION: Admit to [facility] Expect to discharge home and follow with family doctor. Job ID: [id number] [facility]
[2023-03-07 07:32] LABS: Basophils # (auto) 0.04 K/uL (0-0.2); Basophils % (auto) 0.9 %; Eosinophils % (auto) 2.2 %; Hematocrit (blood only) 40.8 % (37.0-47.0); Hemoglobin 13.4 g/dl (12.0-16.0); Immature Granulocytes # (auto) 0.01 K/uL (0.01-0.20); Immature Granulocytes % (auto) 0.2 %; Lymphocytes # (auto) 2.03 K/uL (1.2-3.4); Lymphocytes % (auto) 44.5 %; Mean Corpuscular Hgb Conc 32.8 g/dL (32.0-36.0); Mean Corpuscular Volume 82.3 fL (80.0-100.0); Mean Platelet Volume 10.3 fL (9.4-12.4); Monocytes # (auto) 0.24 K/uL (0.11-0.59); Monocytes % (auto) 5.3 %; Neutrophils # (auto) 2.14 K/uL (1.40-6.50); Neutrophils % (auto) 46.9 %; Platelet Count 201 K/uL (130-400); RDW Coefficient of Variation 13.6 % (11.5-14.5); RDW Standard Deviation 40.4 fL (36.4-46.3); Red Blood Count 4.96 M/uL (4.20-5.40); White Blood Count 4.56 K/ul (4.8-10.8)
[2023-03-07 07:47] LABS: BUN Creatinine Ratio 16.7 (10-20); Calcium 9.4 mg/dl (8.6-10.3); Creatinine Clr Calc Pharmacy 107.4 ml/min; Est GFR (African American) 140.8 ml/min; Est GFR (Non-African American) 121.5 ml/min; Potassium 3.9 mmol/L (3.5-5.1)
[2023-03-07] MEDS: PRENATAL VITAMIN 1 TAB PO SCH (09:53)
--- NOTE | 2023-03-07 10:00 | Neurology Consultation ---
Date of Consultation March 07, 2023 Assessment & Plan (1) Weakness: (2) Difficulty in walking: (3) Complaint of paresthesia: (4) Dizziness: Plan This patient has had history of intermittent dysesthesias particularly on the left side ( leg greater than arm ) and more recently, leg heaviness, creating some difficulty in walking ( almost like a gait ataxia). Interestingly, her neurologic examination is entirely within normal limits without any obvious ataxia, weakness, sensory loss, cranial nerve findings, or other abnormality. She had a normal battery of tests on March 01 including a normal MRI of the brain (Without contrast ) and CT angiography of the head and neck. She has most of her symptoms in the evening when she is somewhat lightheaded/dizzy and her blood pressure drops. She is much better in the morning. These episodic symptoms are not limiting themselves to a specific diagnosis, at this time. However, I would consider several possibilities. Intermittent symptoms like this could be vasospasms/migrainous in nature but the patient never gets headaches and her symptoms are little bit unusual for [place]. She does not fit with intermittent weakness such as a neural muscular junction transmission defect but I do note she has an elevated TSH and thyroid disease can give intermittent symptoms such as this. Although the MRI without contrast was normal these symptoms could represent an inflammatory condition such as multiple sclerosis or variant. Lyme disease is a possibility as well. Recommendations: 1. MRI of the cervical spine, and repeat MRI of the brain, both with and without contrast , a value waiting for demyelinating disease or vasculitis. 2. laboratory studies to include CK, aldolase, Lyme antibody titers (to include Western blot), B12, ESR, CRP, BEULAH, and LYNETTE. other more specific test will be considered future. 3. Lumbar puncture , done under fluoroscopy by Radiology 4. May consider thoracic or lumbar MRI in future. I also may consider EMG nerve conduction studies of the left side as an outpatient. overall, I spent a total of 100 minutes with this case including review of records, review of MRI films, reports generation, direct evaluation of the patient at bedside, and discussing the case with the patient, , and RN at bedside, and Dr. Ordaz, including differential diagnosis and treatment options. History of Present Illness Reason for Consultation: patient is a 32-year-old, who I was asked to see at the request of Dr. Gutierrez, for neurologic consultation regarding episodic weakness and other issues. Requesting Physician: Dr. Gutierrez Attending Physician: Dannie Ordaz MD History of Present Illness This patient has no significant past medical history, past surgical history, or is on any medications. She does not have a history of migraine headaches. About 5 years ago, she had the onset of "weird" sensations in her left arm and leg ( not the face ) that would come and go. They were traveling sensations and they would last anywhere from 1 day to a week. They would then resolved and could be gone for months. These would occur several times per year over the next couple of years. They were then gone for at least 2 years or more. Evaluation of the time revealed no abnormalities. She did not have pain or weakness. There was no balance issue or spine problems. She had no headaches. While the patient was she had no symptoms. Immediately (within the 1st couple of hours) she had an episode of decreased vision peripherally off to the left ( she is uncertain whether it was the left eye or both eyes ). It was just dark and black and it lasted 30 minutes and then resolved. There was no headache before, during, or after. she never had another episode like this before or after. Approximately 1 month ago she had the onset of waves of nausea with vomiting and achy joints. She felt that she had the flu and this lasted about a week. One week later in the evening 1 day she had nausea and vomiting without the achiness. It only lasted 1 day and it was gone. There was no weakness or numbness in the limbs. Starting in the 2nd week of February she started getting the episodes again of weird sensations coming and going in her left arm and leg. She would be fatigued by the evening and somewhat lightheaded / dizzy. She could drop things and was noted to have low blood pressure (lower than normal and as low as 90/65). She arrived to the emergency room on March 01 because she had difficulty walking with both legs feeling heavy and her left arm feeling a little bit weak. She had a little bit of numbness in the left face as well. This lasted hours and was still present when she left the emergency room (albeit improved). She had a normal CBC, Chem profile, and urinalysis. Chest x-ray was unremarkable. CT scan of the head and CT angiography of the head neck were unremarkable. MRI of the brain without contrast was unremarkable as well and she has no abnormalities including no old small vessel ischemic disease or white matter spots. She had no headache before during or after these symptoms. Over the next several days she continued to have heaviness and unusual sensations on the left side with some dizziness particularly in the evenings and has noted to have low blood pressure in the evenings. She is asymptomatic in the mornings. The patient came to the emergency room March 06 because that evening she had heaviness in both legs ( the 1st time it involved both legs) and no symptoms in her arms. Her walking was hard and it was wide-based and awkward. She arrived March 06 at 2119 with a temperature of 36.5, pulse 92 and regular, respiratory rate 20, blood pressure 128/87, and O2 saturation 100%. Her examination was unremarkable although there may been some weakness in the left leg. CBC and Chem profile were unremarkable. TSH was borderline high at 4 0.5. Biofire was negative and chest x-ray was negative. Currently the patient still has some heaviness of her legs although it is improved. There is some dysesthesias of the left thigh. She does have some right flank pain but no spine pain Allergies Allergy/AdvReac Type Severity Reaction Status Date / Time No Known Allergies Allergy Verified 03/01/23 19:05 Home Medications Medication Instructions Recorded Confirmed Type prenat.vits,jarred,edv-[id number]-fgbpq 1 tab PO DAILY 01/23/22 03/06/23 History Patient History Medical History BRCA negative LGSIL on Pap smear of cervix 10/23/2018 Varicella vaccination Surgical History H/O colposcopy with cervical biopsy 11/2018-LGSIL H/O wisdom tooth extraction Family History (Updated 03/07/23 @ 10:08 by Roman Wei MD) Father BRCA gene mutation positive Prostate cancer Aunt Breast cancer Paternal Ovarian cancer Paternal Mother Bipolar disorder Denies family history of Colorectal cancer Uterine cancer Social History Smoking Status: Never smoker Do You Dip or Chew Tobacco: No; Hx Alcohol Use: No Hx Substance Use: No Preferred Language: Amharic Communication Ability: Effective 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 Beliefs That Will Affect Care: None marital status: marital status details: Ge Saunders ([phone] Current Living Situation: Spouse Current Living Situation Comment: lives with spouse, dog, cat-spouse changing litter current occupational status: employed current occupation: [employer] Other Information That Helps Us Care for You: No Feels Safe at Home: Yes Safety Concerns: Feels Safe At This Time Assistive Devices: Glasses Review of Systems Constitutional: no fever, no fatigue and no weakness Eyes: no diplopia, no eye pain and no worsening vision Ear, Nose, Mouth, Throat: no ear pain, no tinnitus, no hearing loss, no dizziness, no snoring, no hoarseness and no dysphagia Respiratory: no cough and no dyspnea Cardiovascular: no chest pain, no palpitations and no lightheadedness Gastrointestinal: no abdominal pain, no nausea and no vomiting Genitourinary: no dysuria, no urinary frequency and no urinary incontinence Musculoskeletal: no back pain, no neck pain, no radicular pain, no joint pain and no myalgia Integumentary: no rash and no lesions Neurologic: + localized weakness and + paresthesia; no gait abnormality, no generalized weakness, no tingling, no numbness, no tremor(s), no abnormal movements, no headache(s), no abnormal speech, no confusion and no memory loss Psychiatric: no depression, no irritability, no anxiety, no difficulty concentrating, no confusion and no hallucinations Endocrine: no fatigue and no flushing Hematologic / Lymphatic: no easy bleeding and no easy bruising Allergy / Immunological: no urticaria and no problem reported Exam (Neuro) Physical Exam: The patient is right-handed. The patient is awake, alert, and attentive. Speech is normal without any aphasia or dysarthria. The patient can name objects, repeat phrases, and has normal spontaneous speech. Mentation and thought processes are intact, with orientation to person, place and time, and normal fund of knowledge. Attention and concentration are normal. Mood and affect are normal and appropriate. General appearance and grooming are normal. Short and long-term memory are intact. The discs are sharp with positive venous pulsations bilaterally. There are no exudates, hemorrhages, or blood vessel changes seen. Pupils are 4 mm bilaterally and reactive to light. Extraocular eye muscles are intact without nystagmus. Visual acuity and visual rocha seem normal grossly to confrontation. There are no deficits to sensation in the face in all 3 distributions of the fifth cranial nerve bilaterally. Corneal reflexes are positive bilaterally. Facial strength and symmetry was normal bilaterally. Hearing seems normal bilaterally. Palate moves well without asymmetry. There is normal sternocleidomastoid and trapezius (shoulder shrug) strength bilaterally. Tongue is midline with good strength bilaterally. Neck has a full range of motion without discomfort. There are no cervical bruits bilaterally. There are no cranial or ocular bruits. Heart is without murmur. There is a regular rhythm and rate. Cervical, thoracic, and lumbar spine are nontender to palpation. Gait is narrow based, with good arm swing, turns, and stance. Balance is normal eyes open or closed. The patient can tandem walk without difficulty. The patient can heal and toe walk normally. With outstretched arms there is no drift. There are no resting, postural, or action tremors. There is no ataxia with finger to nose testing. There is good facility in the hands. No other abnormal involuntary movements are noted. Motor strength is 5/5 diffusely in the arms bilaterally including deltoids, biceps, triceps, brachioradialis, wrist flexors and extensors, management planner, and intrinsic hand muscles. Motor strength is 5/5 diffusely in the legs bilaterally including hip flexors, quadriceps, hamstrings, gastrocnemius, tibialis anterior, tibialis posterior, and Peroneii muscles. Toe extensors are normal and there is good bulk in the extensor digitorum brevis muscles bilaterally. The limbs have good tone without rigidity or spasticity. There is no atrophy noted in the muscles. Muscle bulk is normal, there is no tenderness to palpation, no myotonia to percussion, and no fasciculations seen. Sensory examination is intact to touch and pin throughout all 4 limbs diffusely. Reflexes are 2/4 in the biceps, triceps, brachioradialis, quadriceps, and Achilles tendons bilaterally. There is no clonus bilaterally. Toes are downgoing with plantar stimulation bilaterally. Peripheral pulses are present and of normal quality distally in all 4 limbs. There is no peripheral edema noted in the limbs. Results & Data Vital Signs (Past 12 Hours) Vital Signs Pulse Pulse Resp BP Pulse Ox Pulse Ox O2 Del Method 03/07/23 03:15 65 16 104/63 99 Room Air 03/07/23 02:03 58 L 03/07/23 02:03 62 18 122/62 100 Room Air 03/07/23 02:03 100 03/07/23 00:12 74 18 102/68 100 Room Air 03/06/23 22:59 89 16 120/80 100 Room Air 03/06/23 22:11 89 03/06/23 22:11 100 Room Air O2 Del Method 03/07/23 03:15 03/07/23 02:03 03/07/23 02:03 03/07/23 02:03 Room Air 03/07/23 00:12 03/06/23 22:59 03/06/23 22:11 03/06/23 22:11 PG Care Time/CCT Total # of Minutes Spent Total Time Spent with Patient: Total time spent is greater than 50% in coordination of care (as documented) at patient's floor/unit and/or counseling patient: Coding Level of Care Code 94402 IN/OBS CONSULT LVL 5,80M Diagnoses Weakness R53.1 Difficulty in walking R26.2 Complaint of paresthesia R20.2 Dizziness R42 Time Spent (min) 100
--- NOTE | 2023-03-07 10:12 | Electrocardiogram Report ---
Test Reason : Blood Pressure : / mmHG Vent. Rate : 077 BPM Atrial Rate : 077 BPM P-R Int : 154 ms QRS Dur : 074 ms QT Int : 394 ms P-R-T Axes : 082 065 058 degrees QTc Int : 445 ms Normal sinus rhythm with sinus arrhythmia Normal ECG Confirmed by Donte Sheikh ([id number]) on 03/07/2023 10:12:12 AM Referred By: REFERRED SELF Confirmed By:Jose L Sheikh
--- NOTE | 2023-03-07 15:15 | Fluoroscopy Report ---
LUMBAR PUNCTURE UNDER FLUOROSCOPIC GUIDANCE CLINICAL HISTORY: Lower extremity paresthesias; evaluate for demyelinating disease versus vasculitis PROCEDURE: Procedure and risks were explained. Informed consent was obtained. A final timeout was com pleted. The lower lumbar region was prepped and draped in sterile fashion. 1% lidocaine was utilized for skin anesthesia. Utilizing fluoroscopic guidance, a 22-gauge spinal needle was advanced into the intrathecal space at the L2-3 disc space level. 2 spot images were obtained. Approximately 9 mL of clear CSF fluid was rem erika and sent to the lab for analysis. The spinal needle was removed and Band-Aid applied. The patien t tolerated the procedure well. Vital signs will be monitored postprocedure. Total fluoroscopy time is 11 seconds. DAP is 2.0 mcGy/m2. IMPRESSION: Fluoroscopic-guided lumbar puncture as above. Performed, dictated, and signed by Bimal Cooper PA-C; to be co-signed by Dr. Manohar Sandoval. Electronically signed by: Manohar Sandoval M.D. 03/07/2023 3:37 PM
[2023-03-07] MEDS ORDERED: GADOBUTROL 65ML VIAL IV ONE (18:47)
--- NOTE | 2023-03-07 18:56 | Hospitalist Progress Note ---
Date of Service March 07, 2023 Assessment & Plan (1) Complaint of paresthesia: Plan Neurological symptoms: Patient presented to the ED last with left-sided dysesthesias which resolved on its own and again had lower extremity heaviness/weakness associated with dizziness on the evening prior to arrival this time. Pt denies any skin rash or tick bite. Pt reports maintaining her appetite well. Various serologic titers has been sent, LP has been ordered, discussed with neur ology, MRI has been ordered. Follow-up on the test. Orthostatic vitals are negative. Patient appears feeling better today. DVT prophylaxis: SCDs Full code Admission and Anticipated Discharge Date Admission Date: March 07, 2023 Subjective patient seen and examined at bedside as a follow-up of lower extremity weakness/heaviness associated with dizziness. Patient was sitting up in bed, reading her books, NAD, on room air, denies any new acute event overnight, reports improvement in her lower extremity heaviness/weakness. Denies headache or dizziness today denies chest pain or palpitation. Orthostatic vitals are negative. Physical Exam Physical Exam: GENERAL: Alert and oriented x3. NAD, on RA. HEENT: No pallor, no icterus. Pupils equal, round and reactive to light. Oral mucosa moist. NECK: No JVD, no neck masses. HEART: S1 and S2 heard. Regular rate and rhythm. No murmur, no gallop. RESPIRATORY SYSTEM: Normal AP diameter. No accessory muscle use. No wheezing, no crackles. ABDOMEN: Soft, bowel sounds present, nontender, no distention. CENTRAL NERVOUS SYSTEM: No facial droop. Speech is clear. Obeys simple commands. Moves extremities. EXTREMITIES: No edema, no erythema seen. Results & Data Results & Data Vital Signs (Past 12 Hours) Vital Signs Pulse Resp BP Pulse Ox O2 Del Method 03/07/23 17:00 81 18 98 Room Air 03/07/23 16:30 80 18 109/61 100 Room Air 03/07/23 16:07 77 18 111/61 99 Room Air 03/07/23 15:45 77 18 113/66 100 Room Air 03/07/23 11:07 78 18 118/72 98 Room Air
--- NOTE | 2023-03-07 19:18 | Magnetic Resonance Report ---
MR brain wo/w con CLINICAL HISTORY: demyelinating disease or vasculitis or other path TECHNIQUE: Multiplanar and multisequence MR images of the brain were obtained prior to and following administration of gadolinium contrast. Comparison: Comparison is made to MRI brain 03/01/2023 FINDINGS: No abnormal restricted diffusion is identified. The white matter is unremarkable. The ventricular sys tem is normal in appearance. No mass or abnormal enhancement is seen. There is no mass effect or midl ine shift. There is no evidence of acute intraparenchymal hemorrhage. No extra axial fluid collection s are seen. The corpus callosum, pituitary gland, and cerebellar tonsils appear grossly unremarkable. Flow voids of the major intracranial arterial vessels are identified. A large mucous retention cyst i s seen in the right maxillary sinus. IMPRESSION: No acute abnormality and in particular no evidence of acute infarct. ACT 112: Negative or not required by law. Electronically signed by: Tk Norrsi M.D. 03/07/2023 7:16 PM
--- NOTE | 2023-03-07 19:22 | Magnetic Resonance Report ---
CLINICAL HISTORY: demyelinating disease or vasculitis or other path TECHNIQUE: MRI of the cervical spine is performed utilizing various T1 and T2 sequences in the axial and sagittal planes. IV contrast was administered for this examination. Comparison: None available at the time of this dictation. FINDINGS: The alignment is anatomical. Disks are normal in height and signal. C2-C3: Unremarkable. C3-C4: Unremarkable. C4-C5: Unremarkable. C5-C6: Unremarkable. C6-C7: Unremarkable. C7-T1: Unremarkable. The spinal ligaments are intact, without evidence of disruption or abnormal signal intensity. The spi nal cord is normal in signal intensity and there is no evidence of cord contusion. There is no eviden ce of an extradural, intradural, extramedullary or intramedullary lesion. Visualized soft tissues are normal. Visualized brain parenchyma is normal. IMPRESSION: No evidence of cord compression or significant neuroforaminal narrowing. ACT 112: Negative or not required by law. Electronically signed by: Tk Norris M.D. 03/07/2023 7:19 PM
[2023-03-07] MEDS ORDERED: LORazepam 0.5 MG TAB PO STA (22:36)
[2023-03-08 05:53] LABS: Hematocrit (blood only) 39.6 % (37.0-47.0); Hemoglobin 13.1 g/dl (12.0-16.0); Mean Corpuscular Hemoglobin 26.9 pg (25.0-34.0); Mean Corpuscular Hgb Conc 33.1 g/dL (32.0-36.0); Mean Corpuscular Volume 81.3 fL (80.0-100.0); Mean Platelet Volume 10.5 fL (9.4-12.4); Platelet Count 213 K/uL (130-400); RDW Coefficient of Variation 13.5 % (11.5-14.5); RDW Standard Deviation 39.9 fL (36.4-46.3); Red Blood Count 4.87 M/uL (4.20-5.40); White Blood Count 5.26 K/ul (4.8-10.8)
[2023-03-08 06:04] LABS: Anion Gap 5 (3-11); BUN Creatinine Ratio 31.3 (10-20); Blood Urea Nitrogen 20 mg/dl (6-23); C Reactive Protein < 0.50 mg/dl (0-0.5); Calcium 9.4 mg/dl (8.6-10.3); Carbon Dioxide 26 mmol/L (21-32); Chloride 109 mmol/L (98-107); Creatine Kinase 44 U/L (26-192); Creatinine Clr Calc Pharmacy 100.7 ml/min; Est GFR (African American) 137.8 ml/min; Est GFR (Non-African American) 118.9 ml/min; Glucose 91 mg/dl (70-99(Fasting)); Potassium 3.8 mmol/L (3.5-5.1); Sodium 140 mmol/L (136-145)
[2023-03-08] MEDS: PRENATAL VITAMIN 1 TAB PO SCH (08:34)
--- NOTE | 2023-03-08 10:19 | Neurology Progress Note ---
Date of Service March 08, 2023 Assessment & Plan (1) Weakness: (2) Difficulty in walking: (3) Complaint of paresthesia: (4) Dizziness: Plan This patient has had history of intermittent dysesthesias particularly on the left side ( leg greater than arm ) and more recently, leg heaviness, creating some difficulty in walking ( almost like a gait ataxia). Interestingly, her neurologic examination is entirely within normal limits without any obvious ataxia, weakness, sensory loss, cranial nerve findings, or other abnormality. She had a normal battery of tests on March 01 including a normal MRI of the brain (Without contrast ) and CT angiography of the head and neck. She has most of her symptoms in the evening when she is somewhat lightheaded/dizzy and her blood pressure drops. She is much better in the morning. These episodic symptoms are not limiting themselves to a specific diagnosis, at this time. However, I would consider several possibilities. Intermittent symptoms like this could be vasospasms/migrainous in nature but the patient never gets headaches and her symptoms are little bit unusual for [place]. She does not fit with intermittent weakness such as a neural muscular junction transmission defect but I do note she has an elevated TSH and thyroid disease can give intermittent symptoms such as this. Although the MRI without contrast was normal these symptoms could represent an inflammatory condition such as multiple sclerosis or variant. Lyme disease is a possibility as well. Preliminary results of the LP are unremarkable but much is pending. MRI of the brain and cervical spine were unremarkable without any evidence of demyelinating disease or other abnormalities. Laboratory studies have been obtained and some are back which are but others are pending. Recommendations: 1. There is no need to do any additional neurologic testing at this time. I will follow up as an outpatient In the next 2 or 3 weeks. overall, I spent a total of 35 minutes with this case including review of records, review of MRI films, report generation, direct evaluation of the patient at bedside, and discussing the case with the patient and at bedside, and Dr. Ordaz, including differential diagnosis and treatment options. Admission and Anticipated Discharge Date Admission Date: March 07, 2023 Subjective Patient is stable, with no new issues. Blood pressure is 97/64 with a pulse in the 60s Laboratory studies revealed unremarkable CBC, ESR 2, unremarkable Chem profile, CK of 44, and C reactive protein is 0 5. Lyme antibody titers negative. The patient had lumbar puncture and preliminary results are unremarkable but many tests are pending. MRI of the brain with and without contrast as well as MRI of the cervical spine were unremarkable with no white matter spots. I reviewed these films. Results & Data Vital Signs (Past 12 Hours) Vital Signs Temp Pulse Pulse Pulse Resp BP BP 03/08/23 07:45 36.6 C 66 18 97/64 L 03/08/23 03:03 36.6 C 68 18 93/54 L 03/07/23 23:56 73 03/07/23 22:24 106/72 03/07/23 23:08 36.7 C 70 18 94/53 L Pulse Ox O2 Del Method 03/08/23 07:45 98 Room Air 03/08/23 03:03 94 Room Air 03/07/23 23:56 03/07/23 22:24 03/07/23 23:08 98 Room Air Exam (Neuro) Physical Exam: The patient is awake, alert, and attentive, with normal speech and communication. Mood is normal and affect is appropriate. The patient is fully oriented and has intact long and short term memory. Extraocular eye muscles are intact without nystagmus. Facial strength and symmetry is normal bilaterally. Facial sensation is normal bilaterally in all 3 divisions of the fifth cranial nerve. Tongue is midline with normal strength bilaterally. Gait is narrow based with good arm swing, turns, and stance. Coordination of the arms is normal, without tremor or ataxia bilaterally. Motor strength is 5/5 in all major muscle groups of the arms and legs bilaterally, both proximally and distally. PG Care Time/CCT Total # of Minutes Spent Total Time Spent with Patient: Total time spent is greater than 50% in coordination of care (as documented) at patient's floor/unit and/or counseling patient: Coding Level of Care Code 06067 SUB INP/OBS CARE 2/35MIN Diagnoses Weakness R53.1 Difficulty in walking R26.2 Complaint of paresthesia R20.2 Dizziness R42 Time Spent (min) 35
[2023-03-08 10:55] LABS: CSF Count Tube # 4
[2023-03-08 11:09] LABS: Appearance CSF CLEAR; CSF Xanthrochromic NO; Color CSF COLORLES
[2023-03-08 11:10] LABS: CSF Glucose 51 mg/dl (40-70)
[2023-03-08 11:17] LABS: CSF Chemistry Tube # 1
--- NOTE | 2023-03-08 13:14 | Discharge Summary ---
Date of Service March 08, 2023 Admission HPI Per Admitting Provider DATE OF ADMISSION: 03/07/2023. CHIEF COMPLAINT: Dizziness and left leg weakness. HISTORY OF PRESENT ILLNESS: A 32-year-old female with no significant past medical history 6 months , presents with episode of dizziness and left leg weakness around 4 p.m. today. She was in the ER on 03/01/2023 with weird kind of feeling in the left side of the body, more in the left upper extremity, some off balance at that time. She had CTA of the head and neck and MRI scan of the brain, which were unremarkable. She was advised to follow as outpatient. The patient says at 4 p.m., she suddenly felt dizzy, blurred visions and when tried to walk, she has been dragging her left leg and also felt some hot kind of sensation in the abdomen, which prompted her to come to the ER. Currently, resting comfortably and stable. Her symptoms much improved, but still feels some weak feeling in the left leg. Her dizziness improved. No blurred visions, no earache, no runny nose, no sore throat, no fever. No difficulty swallowing. No chest pain, no shortness of breath. No nausea, no abdominal pain. Normal bowel and bladder movements. ALLERGIES: No known drug allergies. PAST MEDICAL HISTORY: None. PAST SURGICAL HISTORY: None. MEDICATIONS: vitamins. FAMILY HISTORY: Mother side has heart disease. Father side has cervical cancer, prostate cancer and breast cancer. SOCIAL HISTORY: Denies any smoking. No alcohol use. REVIEW OF SYSTEMS: As per HPI. Rest of review of systems is negative. Admission Exam Per Admitting Provider GENERAL: The patient is of moderate build, not in acute distress. VITAL SIGNS: Temperature 36.5, pulse 62, respiratory rate 18, blood pressure 122/62, oxygen 100% on room air. HEENT: Pupils equal, round and reactive to light. Oral mucosa moist. NECK: No JVD, no neck masses. CARDIOVASCULAR: S1 and S2 heard. Regular rate and rhythm. No murmur, no gallop. RESPIRATORY SYSTEM: Normal AP diameter. No accessory muscle use. No wheezing, no crackles. ABDOMEN: Soft, bowel sounds present, nontender, no distention. CENTRAL NERVOUS SYSTEM: Alert and oriented. Speech is clear. No facial droop. Power 4/5 in left lower extremity and 5/5 in other extremities. Sensation is intact. Coordination of movements normal. No pronator drift. Position sense intact. EXTREMITIES: No edema, no erythema. Principal Diagnosis Weakness Difficulty in walking Complaint of paresthesia Dizziness Discharge Exam GENERAL: Alert and oriented x3. NAD, on RA. HEENT: No pallor, no icterus. Pupils equal, round and reactive to light. Oral mucosa moist. NECK: No JVD, no neck masses. HEART: S1 and S2 heard. Regular rate and rhythm. No murmur, no gallop. RESPIRATORY SYSTEM: Normal AP diameter. No accessory muscle use. No wheezing, no crackles. ABDOMEN: Soft, bowel sounds present, nontender, no distention. CENTRAL NERVOUS SYSTEM: No facial droop. Speech is clear. Obeys simple commands. Moves extremities. EXTREMITIES: No edema, no erythema seen. Discharge Data Allergies Allergy/AdvReac Type Severity Reaction Status Date / Time No Known Allergies Allergy Verified 03/01/23 19:05 Consultations 03/06/23 23:56 ED Decision to Admit Stat 03/07/23 08:00 Consult Neurology Routine Ordered Studies 03/07/23 10:25 IR lumbar puncture diagnostic Routine MR brain wo/w con Routine 03/07/23 10:31 MR cervical spine wo/w con Routine Hospital Course (1) Complaint of paresthesia: Plan Neurological symptoms: Patient presented to the ED last with left-sided dysesthesias which resolved on its own and again had lower extremity heaviness/weakness associated with dizziness on the evening prior to arrival this time. Pt denies any skin rash or tick bite. Pt reports maintaining her appetite well. Today she reports feeling better and back to her baseline. Does not have any dizziness or paresthesia issues today. Various serologic titers has been sent, LP has been ordered, discussed with neurology, MRI has been ordered. Follow-up on the test. Orthostatic vitals are negative. --> MRI and available tests are reviewed which are fairly unremarkable. Patient to follow-up with her neurology in 2 to 3 weeks time for the final result on this test and for ongoing evaluation. Discussed with neurology, okay to discharge with close follow-up with neurology. DVT prophylaxis: SCDs Full code Patient being discharged to home with following instruction at the point of discharge: Follow-up with your primary care physician within a week time and likely you will need labs CBC/CMP/magnesium/phosphorus. Follow-up with your neurology in 2 to 3 weeks time. As discussed at the bedside a lot of your serology/lumbar puncture/other inflammatory tests are pending, which you will need to follow up with your neurology or PCP in your next visit. Home Health Attestation I certify that this patient is under my care and that I, or a physicians senior care assistant working with me, had a face to-face encounter that meets the home health [id number] encounter requirements with this patient. The encounter with the patient was in whole, or in part, for the following medical condition, which is the primary reason for home health care (list medical condition): I certify that, based on my findings, the following services are medically necessary home health services: My clinical findings support the need for the above services because: Further, I certify that my clinical findings support that this patient is homebound (i.e. absences from home require considerable and taxing effort and are for medical reasons or rastafarian services or infrequently or of short duration when for other reasons) because: Certification for Home Health Services: Based on the above findings, I certify that this patient is confined to the home and needs intermittent nursing home care, physical therapy and/or speech therapy or continues to need occupational therapy. The patient is under my care, and I have initiated the establishment of the plan of care. This patient will be followed by a physician who will periodically review the plan of care. Total Time Total Time Spent Total Time Spent (In Minutes): 45 Discharge Plan Discharge Items Patient Disposition: Home - Self-Care Reason For Visit: NEURO SYMPTOMS Discharge Diagnosis: Weakness Difficulty in walking Complaint of paresthesia Dizziness Condition on Discharge: Good Activity: Resume your previous activity Non-emergency contact: Primary Care Provider Call non-emergency contact if: you have any medication questions Follow-up/Referrals: Lien Crawford DO [Primary Care Provider] - Diet: Regular Addtl Attending Provider Instructions: Follow-up with your primary care physician within a week time and likely you will need labs CBC/CMP/magnesium/phosphorus. Follow-up with your neurology in 2 to 3 weeks time. As discussed at the bedside a lot of your serology/lumbar puncture/other inflammatory tests are pending, which you will need to follow up with your neurology or PCP in your next visit. Pending Studies at Discharge: Yes Stand-Alone Forms: My [facility], Smoking Cessation Medications and DC Order Prescriptions: Continued prenat.vits,jarred,gca-fiye-xbqvh Tablet 1 tab PO DAILY Discharge Orders: Discharge Order (Routine); Ordered 03/08/23 Ordered By: Dannie Ordaz Admission Data Admit Date/Time: 03/07/23 01:37 Attending Provider: Dannie Ordaz Admit Provider: Juvencio Gutierrez Primary Care Provider: Lien Crawford Other Providers: Juvencio Gutierrez ; Camacho Alcala ; Roman Wei ; Margie Brice ; Lissette Lria ; Anitha Ambrocio ; Bakari Cam ; Anitha Vazquez ; Angel Isidro ; Raj Yu ; Ho Vera ; Flores Roe ; Bonnie Richards ; Bakari Dominguez ; Shaan Barrera ; David Rivera
[2023-03-08 13:23] LABS: Cryptococcus neoformans/ga PCR Not Detected (NotDetected); Cytomegalovirus PCR Not Detected (NotDetected); Enterovirus PCR Not Detected (NotDetected); Escherichia coli K1 PCR Not Detected (NotDetected); Haemophilius influenzae PCR Not Detected (NotDetected); Herpes Simplex Virus 1 PCR Not Detected (NotDetected); Herpes Simplex Virus 2 PCR Not Detected (NotDetected); Human Herpes Virus 6 PCR Not Detected (NotDetected); Human Parechovirus PCR Not Detected (NotDetected); Listeria monocytogenes PCR Not Detected (NotDetected); Neisseria meningitidis PCR Not Detected (NotDetected); Streptococcus agalactiae PCR Not Detected (NotDetected); Streptococcus pneumoniae PCR Not Detected (NotDetected); Varicella Zoster Virus PCR Not Detected (NotDetected)
[2023-03-08 14:23] LABS: Epstein Barr Virus Early Ag Ab >150.00 U/mL
[2023-03-09 20:07] LABS: Aldolase 2.1 U/L (< OR = 8.1); Angiotensin Converting Enzyme 43 U/L (9-67); Anti Nuclear Antibody Screen NEGATIVE (NEGATIVE)
[2023-03-10 17:18] LABS: Babesia microti DNA Not Detected (Not Detected)
[2023-03-13 20:27] LABS: Lyme IgG Band Pattern CSF DNR; Lyme IgG CSF NO BANDS DETECTED; Lyme IgM Band Pattern CSF DNR; Lyme IgM CSF NO BANDS DETECTED
[2023-03-14 04:43] LABS: Cryptococcal Antigen Not Detected (Not Detected); EBV DNA Quant PCR Not Detected copies/mL; EBV DNA Quant Source CSF; Source CSF
[2023-03-16 01:33] LABS: Albumin 4.4 g/dL (3.6-5.1); Albumin, CSF 22.2 mg/dL (8.0-42.0); IgG CSF 2.7 mg/dL (0.8-7.7); IgG Index, CSF 0.51 (<0.70); IgG Serum 1040 mg/dL (600-1640); Myelin Basic Protein <2.0 mcg/L (<=4.0); Oligoclonal Bands IgG, CSF Absent (Absent); Synthesis Rate, IgG CSF -2.2 mg/24 h (-9.9-3.3)
== END 2023-03-08 15:07 | disposition home or self-care (01) | DRG 149 ==
LOC: ED 21:17 → EDINP 03-07 01:37 → INTOOBSV 03-07 01:37 → SUATTDRO 03-07 01:37 → EDINP 03-07 17:15 → 2N 03-07 19:36

== ENCOUNTER 2025-06-07 01:03 | Inpatient (IN) ==
[2025-06-07] MEDS ORDERED: LIDOCAINE 1% LOCAL 20 ML VIAL INFIL PRN (03:08)
[2025-06-07] MEDS: LACTATED RINGER'S 1,000 ML IV PRN (03:31)
[2025-06-07 03:46] LABS: Hematocrit (blood only) 38.5 % (37.0-47.0); Hemoglobin 12.5 g/dl (12.0-16.0); Mean Corpuscular Hemoglobin 27.1 pg (25.0-34.0); Mean Corpuscular Volume 83.3 fL (80.0-100.0); Platelet Count 137 K/uL (130-400); RDW Standard Deviation 44.4 fL (36.4-46.3); Red Blood Count 4.62 M/uL (4.20-5.40); White Blood Count 8.94 K/ul (4.8-10.8)
[2025-06-07] MEDS: PENICILLIN GK 6 MU in DEXTROSE 5% 250 ML IV STA (03:47)
[2025-06-07] MEDS ORDERED: fentANYL 2 MCG/ML BUPIVacaine 0.125%-NSS 100ML BAG EPI PRN (05:32)
[2025-06-07] MEDS ORDERED: NALBUPHINE HCL INJ 10 MG/ML AMP IV PRN (05:32)
[2025-06-07] MEDS ORDERED: NALOXONE HCL 0.4 MG/1 ML VIAL/CARP IV PRN (05:32)
[2025-06-07] MEDS ORDERED: ROPIVACAINE 0.5% PF 5 MG/ML 20 ML VIAL EPI PRN (05:32)
[2025-06-07] MEDS ORDERED: LIDOCAINE 2% MPF LOCAL 5 ML VIAL EPI PRN (05:32)
[2025-06-07] MEDS ORDERED: diphenhydrAMINE 50 MG/ML VIAL IV PRN (05:32)
[2025-06-07] MEDS ORDERED: NALOXONE HCL 1 MG in SODIUM CHLORIDE 0.9% 1,000 ML IV PRN (05:32)
[2025-06-07] MEDS ORDERED: SODIUM CHLORIDE 0.9% PF INJ 10 ML VIAL EPI PRN (05:32)
--- NOTE | 2025-06-07 05:32 | Anesthesiology Consultation ---
Date of Service June 07, 2025 Assessment & Plan (1) Encounter for pre-operative examination: Chart Review Chart Review: Patient NOT seen in Pre Admission Testing and Acceptable Risk for Labor Epidural Consults Requested none History Height/Weight Height: 5 ft 2 in Weight: 77.564 kg Allergies Allergy/AdvReac Type Severity Reaction Status Date / Time topiramate AdvReac Severe Diarrhea Verified 06/07/25 04:00 Medications Home Medications Medication Instructions Recorded Confirmed Last Taken breast pump #1 ea 01/26/25 06/04/25 Unknown vits no.124-ferrous fum 1 tab PO DAILY 06/07/25 06/07/25 06/07/25 27 mg iron-folic acid 800 mcg tablet ( Vitamin) Active Medications Generic Name Dose Route Start Last Admin Trade Name Freq PRN Reason Stop Dose Admin Lactated Ringer's 1,000 mls @ 125 mls/hr 06/07/25 03:08 06/07/25 05:10 Lr IV 06/09/25 03:07 999 mls/hr .Q8H PRN Infusion L&D Protocol Protocol Past Medical History Medical History Gluten free diet Varicella vaccination Past Family History Family History Father BRCA gene mutation positive Prostate cancer Aunt Breast cancer Paternal Ovarian cancer Paternal Mother Bipolar disorder Denies family history of Colorectal cancer Uterine cancer Past Surgical History Surgical History H/O wisdom tooth extraction H/O colposcopy with cervical biopsy 11/2018-[facility] Social History Smoking Status: Never smoker Do You Dip or Chew Tobacco: No Hx Alcohol Use: No Hx Substance Use: No Physical Exam Vital Signs Last Vital Signs Temp 98.1 F 06/07/25 04:40 Pulse 72 06/07/25 04:41 Resp 18 06/07/25 04:40 BP 114/57 L 06/07/25 04:41 Testing Laboratory Results 06/07/25 03:19
[2025-06-07] MEDS: fentANYL 2 MCG/ML BUPIVacaine 0.125%-NSS 100ML BAG ONE (05:56)
[2025-06-07] MEDS: BUPIVACAINE 0.25% PF 30 ML VIAL ONE (05:59)
[2025-06-07] MEDS: SODIUM CHLORIDE 0.9% PF INJ 10 ML VIAL ONE (06:00)
[2025-06-07] MEDS: LIDOCAINE 2%/EPINEPHRINE 1:200,000 20 ML PF ONE (06:00)
[2025-06-07] MEDS: LIDOCAINE 2%/EPINEPHRINE 1:200,000 20 ML PF EPI STA (06:06)
[2025-06-07] MEDS: SODIUM CHLORIDE 0.9% PF INJ 10 ML VIAL EPI STA (06:06)
[2025-06-07] MEDS: BUPIVACAINE 0.25% PF 30 ML VIAL EPI STA (06:07)
[2025-06-07] MEDS ORDERED: NURSING L&D Epidural Breakthrough Pain Update ONE (07:15)
[2025-06-07] MEDS: BUPIVACAINE 0.25% PF 30 ML VIAL EPI PRN (07:35)
--- NOTE | 2025-06-07 07:45 | Anesthesia Procedure Note ---
Date of Service June 07, 2025 Anesthesia Epidural Re-Dose Vital Signs Temp Pulse Resp BP Pulse Ox 36.7 C 83 20 97/56 L 90 06/07/25 04:40 06/07/25 07:42 06/07/25 05:55 06/07/25 07:40 06/07/25 07:42 Notes Pain Intensity: 5 Dilatation (cm): 5.0 Effacement (%): 80 Called by nursing to evaluate epidural as the patient is having increased pain. The epidural was re-dosed with the following medications (all medications via epidural route) after negative aspiration of the epidural catheter for CSF/HEME. After Epidural Re-Dose Mental Status: alert / awake / arousable and participated in evaluation Pain: improving with treatment Airway Patency, RR, SpO2: stable & adequate BP & HR: stable & adequate Additional Notes: Asked to see patient for one sided pain. On exam with ice, patient had T10 level on right and L1 level on left. Pulled catheter back 1 cm and redosed epidural with 8 cc of 0.125% bupi. BP has been 90s/50s. Asked RN to give additional bolus (700 cc since admission so far). HDS at time I left room. Pain improved.
[2025-06-07] MEDS: PENICILLIN GK 3 MU in DEXTROSE 5% 100 ML IV PRN (07:55)
[2025-06-07] MEDS: ONDANSETRON INJ 2 MG/ML 2 ML VIAL IV PRN (08:46)
[2025-06-07] MEDS: FAMOTIDINE 20 MG TAB PO ONE (11:33)
[2025-06-07] MEDS: OXYTOCIN 30 UNITS/NSS 30 UNITS/500 ML BAG IV PRN ×2 (12:02→13:03)
--- NOTE | 2025-06-07 12:09 | Delivery Summary ---
Vaginal Delivery Summary Date of Service June 07, 2025 Vaginal Delivery Summary and 1st Degree LAC Patient arrived in active labor at 39 weeks hardeep progressing to 5 cm requested epidural she was group B strep positive IV antibiotics started artificial rupture of membranes later allowed for a better labor pattern and then she progressed to fully dilated she delivered in occiput anterior position thin meconium mouth of the baby and nares were suctioned with bulb gentle tr action the baby no excessive force no cord around the neck live vigorous male easy delivery First-degree tear repaired with 3-0 Vicryl placenta was delivered with manual traction IV Pitocin started uterine tone improved QBL per nursing record sponge and instrument counts correct [facility] Vaginal Delivery Charge Delivery Type Details: and 1st Degree LAC
[2025-06-07] MEDS ORDERED: HYDROCORTISONE ACETATE 25 MG SUPP PR PRN (12:35)
[2025-06-07] MEDS ORDERED: DIPHTHER/TETAN/PERTUS Vaccine (Tdap, Adol/Adult) 0.5mL IM ONE (12:35)
--- NOTE | 2025-06-07 12:58 | Anesthesia Procedure Note ---
Date of Service June 07, 2025 Anesthesia Post Epidural Note Vital Signs Vital Signs: Temp Pulse Resp BP Pulse Ox 36.5 C 73 18 100/60 91 06/07/25 07:14 06/07/25 12:52 06/07/25 11:30 06/07/25 12:44 06/07/25 12:52 Pain Intensity Abdomen: Pain Intensity: 5 Notes Mental Status: alert / awake / arousable and participated in evaluation Nausea / Vomiting: adequately controlled Pain: adequately controlled Airway Patency, RR, SpO2: stable & adequate BP & HR: stable & adequate Hydration State: stable & adequate Neuraxial Anesthesia: was administered and sensory block is resolving Anesthetic Complications: no major complications apparent Epidural: Removed without complications and With tip intact
[2025-06-07] MEDS: IBUPROFEN 600 MG TAB PO PRN (15:19)
[2025-06-07] MEDS: BENZOCAINE 20% SPRY 85 APPLN/85 GM CAN EXT PRN (15:19)
[2025-06-07] MEDS: DOCUSATE SODIUM 100 MG CAP PO SCH (20:59)
[2025-06-07 21:12] VITALS: RESP 18
[2025-06-08 00:48] VITALS: O2SAT 100
--- NOTE | 2025-06-08 06:12 | Obstetrical Progress Note ---
Date of Service <Kelsi Zavala DO - Last Filed: 06/08/25 07:26> June 08, 2025 Assessment & Plan <Kelsi Zavala DO - Last Filed: 06/08/25 07:26> (1) care following vaginal delivery: (2) Right leg numbness: Plan Plan for discharge today. Leg pain is most likely due to positional changes during delivery, and should resolve within 2 months. Continue to monitor and call with worsening symptoms. <Inna Hugo MD, FACOG - Last Filed: 06/08/25 15:13> (1) care following vaginal delivery: (2) Right leg numbness: Subjective <Kelsi Zavala DO - Last Filed: 06/08/25 07:26> Constitutional: + as per Subjective / HPI She is doing well. Complains of R leg numbness that has improved since yesterday. Reports it is localized to R thigh. Denies fever and chills, denies headaches. Denies SOB, wheezing. Denies palpitations, CP. Denies breast tenderness or discharge. Denies urinary symptoms. Physical Exam <Kelsi Zavala DO - Last Filed: 06/08/25 07:26> Constitutional WD/WN, vitals as above Respiratory normal respiratory effort, lungs clear to auscultation Cardiovascular RRR, no murmur, no edema Gastrointestinal (Abdomen) normal bowel sounds, soft, nontender, no hepatosplenomegaly Skin no rashes, warm and dry Psychiatric A+Ox3, euthymic affect Lymphatic no LE edema +1cm uterus Results & Data <Kelsi Zavala DO - Last Filed: 06/08/25 07:26> Vital Signs (Past 12 Hours) Vital Signs Temp Pulse Resp BP Pulse Ox O2 Del Method 06/08/25 04:00 36.5 C 66 18 93/62 L 100 Room Air 06/08/25 00:30 36.6 C 69 18 97/58 L 100 Room Air 06/07/25 20:00 36.5 C 73 18 98/62 L 99 Room Air Supervising Physician <Inna Hugo MD, FACOG - Last Filed: 06/08/25 15:13> Co-Signing Physician Notes Resident Physician Supervision Note: I was present with [Name of resident] during the history and exam. I discussed the case with the resident and agree with the findings and plan as documented in the note. Any exceptions or clarifications are listed here: [None] Documented By: Inna Hugo MD, FACOG Resident Activity Tracking <Kelsi Zavala DO - Last Filed: 06/08/25 07:26> Resident Involvement: Resident Care Provided Care Provided: Adult Hospital Medicine
[2025-06-08] MEDS: ACETAMINOPHEN 325 MG TAB PO PRN (06:25)
[2025-06-08] MEDS: PRENATAL VITAMIN 1 TAB PO SCH (08:04)
[2025-06-08 09:10] LABS: Hematocrit (blood only) 34.2 % (37.0-47.0); Hemoglobin 11.0 g/dl (12.0-16.0); Mean Corpuscular Hemoglobin 27.5 pg (25.0-34.0); Mean Corpuscular Volume 85.5 fL (80.0-100.0); Platelet Count 123 K/uL (130-400); RDW Standard Deviation 45.8 fL (36.4-46.3); Red Blood Count 4.00 M/uL (4.20-5.40); White Blood Count 7.60 K/ul (4.8-10.8)
[2025-06-08 12:06] VITALS: BP 92/67; PULSE 73; TEMP 97.5
== END 2025-06-08 13:30 | disposition home or self-care (01) | DRG 807 ==
LOC: OPB 01:03 → 4S1 01:05 → 4E2 16:18